=== PATIENT | male | born 1965 | race Caucasian/White ===

== ENCOUNTER 2018-03-06 11:55 | Inpatient (IN) | payer OTHER ==
[2018-03-06 12:05] VITALS: BMI 24.0
--- NOTE | 2018-03-06 13:28 | HP ---
CIWA Score - CIWA Score Nausea/Vomitin-No Nausea/No Vomiting Muscle Tremors: 3 Anxiety: 4-Mod. Anxious/Guarded Agitation: 4-Moderately Restless Paroxysmal Sweats: 1-Minimal Palms Moist Orientation: 0-Oriented Tacttile Disturbances: 2-Mild Itch/Numbness/Burn Auditory Disturbances: 0-None Visual Disturbances: 0-None Headache: 0-None Present CIWA-Ar Total Score: 14 Admission ROS BHS - HPI Chief Complaint: withdrawal sx alcohol Allergies/Adverse Reactions: Allergies Allergy/AdvReac Type Severity Reaction Status Date / Time No Known Allergies Allergy Verified 03/06/18 13:23 History of Present Illness: 52 years old male with long history of alcohol nicotine dependence has hypertension diabetes ii positive ppd and bipolar ii is admitted to detox Exam Limitations: No Limitations - Ebola screening Have you traveled outside of the country in the last 21 days: No Have you had contact with anyone from an Ebola affected area: No Have you been sick,other than usual withdrawal symptoms: No Do you have a fever: No - Review of Systems Constitutional: Loss of Appetite, Changes in sleep, Unintentional Wgt. Loss, Unexplained wgt Loss EENT: reports: Blurred Vision (eye glasses) Respiratory: reports: No Symptoms reported Cardiac: reports: No Symptoms Reported GI: reports: Nausea, Poor Appetite, Poor Fluid Intake, Indigestion, Abdominal cramping : reports: No Symptoms Reported Musculoskeletal: reports: Neck Pain (legs) Integumentary: reports: No Symptoms Reported Neuro: reports: Tremors Endocrine: reports: No Symptoms Reported Hematology: reports: No Symptoms Reported Psychiatric: reports: Judgement Intact, Orientated x3, Anxious, Depressed Other Systems: Reviewed and Negative Patient History - Patient Medical History Hx Anemia: No Hx Asthma: No Hx Chronic Obstructive Pulmonary Disease (COPD): No Hx Cancer: No Hx Cardiac Disorders: No Hx Congestive Heart Failure: No Hx Hypertension: Yes Hx Hypercholesterolemia: No Hx Pacemaker: No HX Cerebrovascular Accident: No Hx Seizures: No Hx Dementia: No Hx Diabetes: Yes Hx Gastrointestinal Disorders: No Hx Liver Disease: No Hx Genitourinary Disorders: No Hx Sexually Transmitted Disorders: No Hx Renal Disease (ESRD): No Hx Thyroid Disease: No Hx Human Immunodeficiency Virus (HIV): No Hx Hepatitis C: No Hx Depression: No Hx Suicide Attempt: No Hx Bipolar Disorder: Yes Hx Schizophrenia: No - Patient Surgical History Past Surgical History: No Hx Orthopedic Surgery: No - Smoking Cessation Smoking history: Current every day smoker Have you smoked in the past 12 months: Yes Aproximately how many cigarettes per day: 8 Cigars Per Day: 0 Hx Chewing Tobacco Use: No Initiated information on smoking cessation: Yes 'Breaking Loose' booklet given: 03/06/18 - Substance & Tx. History Hx Alcohol Use: Yes Hx Substance Use: Yes Substance Use Type: Alcohol, Cocaine, Marijuana Hx Substance Use Treatment: Yes (2008) - Substances Abused Cocaine Route: Inhalation Frequency: Daily Amount used: $50 Age of first use: 17 Date of Last Use: 03/03/18 Alcohol-vodka Route: Oral Frequency: Daily Amount used: 3 pts. Age of first use: 12 Date of Last Use: 03/04/18 Marijuana Route: Smoking Frequency: 3-6 times per week Amount used: $30 Age of first use: 17 Date of Last Use: 03/05/18 Family Disease History - Family Disease History Family Disease History: Diabetes: Mother, Other: Father () Other Family History: only child Admission Physical Exam [facility] - Vital Signs Vital Signs: Vital Signs - 24 hr 03/06/18 12:03 Temperature 97 F L Pulse Rate 53 L Respiratory 18 Rate Blood Pressure 162/90 - Physical General Appearance: Yes: Appropriately Dressed, Mild Distress, Tremorous, Irritable, Sweating, Anxious HEENTM: Yes: Hearing grossly Normal, Normocephalic, Normal Voice Respiratory: Yes: Chest Non-Tender, No Respiratory Distress, No Accessory Muscle Use Neck: Yes: Supple, Trachea in good position Breast: Yes: Breasts Symetrical, No Discharge Cardiology: Yes: Regular Rhythm, S1, S2, Bradycardia Abdominal: Yes: Normal Bowel Sounds, Non Tender, Flat Genitourinary: Yes: Within Normal Limits Back: Yes: Normal Inspection Musculoskeletal: Yes: full range of Motion, Gait Steady, Muscle Pain (legs) Extremities: Yes: Normal Inspection, Normal Range of Motion, Non-Tender, Tremors Neurological: Yes: Fully Oriented, Alert, Motor Strength 5/5, Normal Response, Depressed Affect Integumentary: Yes: Warm Lymphatic: Yes: Within Normal Limits - Diagnostic (1) Alcohol dependence with uncomplicated withdrawal Current Visit: Yes Status: Acute (2) Hypertension Current Visit: Yes Status: Chronic Qualifiers: Hypertension type: essential hypertension Qualified Code(s): I10 - Essential (primary) hypertension (3) Diabetes mellitus type II, uncontrolled Current Visit: Yes Status: Chronic Qualifiers: Diabetes mellitus vermin exterminator insulin use: with mcc use Diabetes mellitus complication status: without complication Qualified Code(s): E11.65 - Type 2 diabetes mellitus with hyperglycemia; Z79.4 - long term care pharmacist (current) use of insulin; Z79.4 - group home (current) use of insulin; Z79.4 - long term care pharmacist ( current) use of insulin; Z79.4 - long term care pharmacist (current) use of insulin (4) Positive PPD, treated Current Visit: Yes Status: Resolved (5) Nicotine dependence Current Visit: Yes Status: Acute Qualifiers: Nicotine product type: cigarettes Substance use status: in withdrawal Qualified Code(s): F17.213 - Nicotine dependence, cigarettes, with withdrawal (6) GERD (gastroesophageal reflux disease) Current Visit: Yes Status: Chronic Qualifiers: Esophagitis presence: without esophagitis Qualified Code(s): K21.9 - Gastro -esophageal reflux disease without esophagitis Cleared for Admission BHS - Detox or Rehab [facility] Level of Care: Medically Managed Detox Regimen/Protocol: Librium [facility] Breath Alcohol Content Breath Alcohol Content: 0 Urine Drug Screen - Control Is Test Valid: Yes - Results Drug Screen Negative: No Urine Drug Screen Results: THC-Marijuana, MONI-Cocaine
[2018-03-06] MEDS ORDERED: LOPERAMIDE HCL 2 MG CAPSULE PO PRN (13:33)
[2018-03-06] MEDS ORDERED: ACETAMINOPHEN 325 MG TABLET (FP) PO PRN (13:33)
[2018-03-06] MEDS ORDERED: chlordiazePOXIDE HCL 25 MG CAPSULE PO PRN (13:33)
[2018-03-06] MEDS ORDERED: NICOTINE POLACRILEX 2 MG GUM BC PRN (13:33)
[2018-03-06] MEDS ORDERED: MAGNESIUM HYDROX 2400MG/30ML ORAL SUSPENSION 30 ML CUP PO PRN (13:33)
[2018-03-06] MEDS ORDERED: guaiFENesin/D-METHORPHAN HB 10 ML UNIT-DOSE CUPS PO PRN (13:33)
[2018-03-06] MEDS ORDERED: IBUPROFEN 400 MG TABLET (FP) PO PRN (13:33)
[2018-03-06] MEDS ORDERED: MENTHOL/PHENOL 1 EACH UD MM PRN (13:33)
[2018-03-06] MEDS ORDERED: P-EPHED 60MG/TRIPROLIDI 2.5MG TABLET PO PRN (13:33)
[2018-03-06] MEDS ORDERED: MAG HYDROX/AL HYDROX/SIMETH 30 ML UNIT-DOSE CUP PO PRN (13:33)
[2018-03-06] MEDS ORDERED: MAGNESIUM CITRATE 300 ML BOTTLE PO PRN (13:33)
[2018-03-06] MEDS: ENALAPRIL MALEATE 10 MG TABLET (FP) PO SCH (15:26)
[2018-03-06] MEDS: NICOTINE 14 MG/24 HOURS TOPICAL PATCH TD SCH (15:27)
[2018-03-06] MEDS: RANITIDINE HCL 150 MG TABLET (FP) PO SCH ×2 (15:27→22:23)
[2018-03-06 16:39] LABS: URINE APPEARANCE CLEAR; URINE BILIRUBIN NEGATIVE (<2.0 mg/dL); URINE COLOR LTYELLOW; URINE GLUCOSE (UA) 3+ (NEGATIVE); URINE KETONE TRACE (NEGATIVE); URINE LEUK ESTERASE NEGATIVE (NEGATIVE); URINE NITRITE NEGATIVE (NEGATIVE); URINE PROTEIN NEGATIVE (NEGATIVE); URINE UROBILINOGEN NEGATIVE mg/dL (0.2-1.0)
[2018-03-06] MEDS ORDERED: INSULIN (NOVOLOG) ASPART 100 UNITS/ML 10ML VIAL ONE (16:48)
[2018-03-06] MEDS: INSULIN SLIDING SCALE (NOVOLOG) 1 VIAL SQ SCH ×2 (17:01→21:25)
[2018-03-06] MEDS ORDERED: MELATONIN 5 MG TABLETS PO PRN (22:00)
[2018-03-06] MEDS: THIAMINE HCL 100 MG TABLET (FP) PO SCH (22:23)
[2018-03-06] MEDS: chlordiazePOXIDE HCL 25 MG CAPSULE PO SCH (22:23)
[2018-03-07] MEDS: chlordiazePOXIDE HCL 25 MG CAPSULE PO SCH ×4 (05:18→22:50)
[2018-03-07] MEDS: INSULIN SLIDING SCALE (NOVOLOG) 1 VIAL SQ SCH ×4 (06:44→22:50)
[2018-03-07] MEDS ORDERED: INSULIN (NOVOLOG) ASPART 100 UNITS/ML 10ML VIAL ONE ×4 (06:44→21:15)
[2018-03-07 09:50] LABS: HEMOGLOBIN 14.8 GM/dL (11.7-16.9); MCH 31.4 pg (25.7-33.7); MCHC 34.4 g/dl (32.0-35.9); MEAN CELL VOLUME 91.1 fl (80-96); MEAN PLT VOLUME 10.5 fl (7.5-11.1); PLATELET COUNT 174 K/MM3 (134-434); RBC 4.72 M/mm3 (4.00-5.60); RDW 13.3 % (11.9-15.9); WHITE BLOOD COUNT 6.5 K/mm3 (4.0-10.0)
--- NOTE | 2018-03-07 09:55 | EKG ---
Test Reason : Blood Pressure : / mmHG Vent. Rate : 058 BPM Atrial Rate : 058 BPM P-R Int : 152 ms QRS Dur : 094 ms QT Int : 418 ms P-R-T Axes : 067 063 053 degrees QTc Int : 410 ms SINUS BRADYCARDIA OTHERWISE NORMAL ECG NO PREVIOUS ECGS AVAILABLE Confirmed by MD Cheko, Jarrett ([id number]) on 03/07/2018 9:54:58 AM Referred By: Confirmed By:Jarrett Still MD
[2018-03-07 10:05] LABS: CHLORIDE 102 mmol/L (98-107); POTASSIUM 4.1 mmol/L (3.5-5.1); SODIUM 138 mmol/L (136-145)
[2018-03-07] MEDS: NICOTINE 14 MG/24 HOURS TOPICAL PATCH TD SCH (10:16)
[2018-03-07] MEDS: ENALAPRIL MALEATE 10 MG TABLET (FP) PO SCH (10:16)
[2018-03-07] MEDS: PRENATAL VITAMINS W/ FOLIC ACID TABLET (FP) PO SCH (10:16)
[2018-03-07] MEDS: RANITIDINE HCL 150 MG TABLET (FP) PO SCH ×2 (10:16→22:50)
[2018-03-07 11:03] LABS: ALBUMIN 3.7 g/dl (3.4-5.0); ALK PHOS 69 U/L (45-117); ANION GAP 7 (8-16); BILIRUBIN,TOTAL 0.5 mg/dL (0.2-1.0); BLOOD UREA NITROGEN 9 mg/dL (7-18); CALCIUM 8.4 mg/dL (8.5-10.1); CO2 29 mmol/L (21-32); CREATININE 0.9 mg/dL (0.7-1.3); SGOT/AST 9 U/L (15-37); SGPT/ALT 15 U/L (12-78); TOT PROT 6.7 g/dl (6.4-8.2)
[2018-03-07 11:06] LABS: GLUCOSE,RANDOM 361 mg/dL (74-106)
--- NOTE | 2018-03-07 12:20 | PN ---
[facility] CIWA - CIWA Score Nausea/Vomitin-No Nausea/No Vomiting Muscle Tremors: None Anxiety: 4-Mod. Anxious/Guarded Agitation: 3 Paroxysmal Sweats: 3 Orientation: 0-Oriented Tacttile Disturbances: 2-Mild Itch/Numbness/Burn Auditory Disturbances: 3-Moderate Harsh/Frighten Visual Disturbances: 1-Very Mild Sensitivity Headache: 0-None Present CIWA-Ar Total Score: 16 S Progress Note (SOAP) Subjective: Fatigue, Sweating, Anxious. Objective: PATIENT A & O X 3. NO ACUTE DISTRESS. 03/07/18 12:19 Vital Signs Temperature 98.4 F 03/07/18 10:07 Pulse Rate 61 03/07/18 10:07 Respiratory Rate 20 03/07/18 10:07 Blood Pressure 116/74 03/07/18 10:07 O2 Sat by Pulse Oximetry (%) Laboratory Tests 03/06/18 03/06/18 03/06/18 13:40 14:00 16:27 WBC RBC Hgb Hct MCV MCH MCHC RDW Plt Count MPV Sodium Potassium Chloride Carbon Dioxide Anion Gap BUN Creatinine Creat Clearance w eGFR POC Glucometer 463 459 Random Glucose Calcium Total Bilirubin AST ALT Alkaline Phosphatase Total Protein Albumin Urine Color Ltyellow Urine Appearance Clear Urine pH 6.0 Ur Specific [place] 1.031 Urine Protein Negative Urine Glucose (UA) 3+ H Urine Ketones Trace H Urine Blood Negative Urine Nitrite Negative Urine Bilirubin Negative Urine Urobilinogen Negative Ur Leukocyte Esterase Negative 03/06/18 03/07/18 03/07/18 20:25 05:21 06:00 WBC 6.5 RBC 4.72 Hgb 14.8 Hct 43.0 MCV 91.1 MCH 31.4 MCHC 34.4 RDW 13.3 Plt Count 174 MPV 10.5 Sodium Potassium Chloride Carbon Dioxide Anion Gap BUN Creatinine Creat Clearance w eGFR POC Glucometer 128 292 Random Glucose Calcium Total Bilirubin AST ALT Alkaline Phosphatase Total Protein Albumin Urine Color Urine Appearance Urine pH Ur Specific [place] Urine Protein Urine Glucose (UA) Urine Ketones Urine Blood Urine Nitrite Urine Bilirubin Urine Urobilinogen Ur Leukocyte Esterase 03/07/18 06:00 WBC RBC Hgb Hct MCV MCH MCHC RDW Plt Count MPV Sodium 138 Potassium 4.1 Chloride 102 Carbon Dioxide 29 Anion Gap 7 L BUN 9 Creatinine 0.9 Creat Clearance w eGFR > 60 POC Glucometer Random Glucose 361 H* Calcium 8.4 L Total Bilirubin 0.5 AST 9 L ALT 15 Alkaline Phosphatase 69 Total Protein 6.7 Albumin 3.7 Urine Color Urine Appearance Urine pH Ur Specific [place] Urine Protein Urine Glucose (UA) Urine Ketones Urine Blood Urine Nitrite Urine Bilirubin Urine Urobilinogen Ur Leukocyte Esterase LABS NOTED. Assessment: 03/07/18 12:19 WITHDRAWAL SYMPTOMS. Plan: CONTINUE DETOX. INCREASE DAILY PO FLUID INTAKE.
--- NOTE | 2018-03-07 13:02 | CONSULT ---
[facility] Psychiatric Consult - Data Date of interview: 03/07/18 Admission source: [facility] Identifying data: First admission to [facility] for this 52 y/o male seeking detox treatment on for cacaine,cannabis and alcohol dependence.Patient is single without children,domiciled (lives with his mother), unemployed and supported on Public Assistance. Substance Abuse History: Confirmed by patient in this interview.Details in current [facility] report : Smoking history: Current every day smoker. Have you smoked in the past 12 months: Yes. Aproximately how many cigarettes per day: 8. Cigars Per Day: 0. Hx Chewing Tobacco Use: No. Initiated information on smoking cessation: Yes. 'Breaking Loose' booklet given: 03/06/18. - Substance & Tx. History. Hx Alcohol Use: Yes. Hx Substance Use: Yes. Substance Use Type : Alcohol, Cocaine, Marijuana. Hx Substance Use Treatment: Yes (2008). - Substances Abused. Cocaine. Route: Inhalation. Frequency: Daily. Amount used: $50. Age of first use: 17. Date of Last Use: 03/03/18. Alcohol- vodka. Route: Oral. Frequency: Daily. Amount used: 3 pts. Age of first use: 12. Date of Last Use: 03/04/18. Marijuana. Route: Smoking. Frequency: 3- 6 times per week. Amount used: $30. Age of first use: 17. Date of Last Use: 03/05/18 Medical History: Diabetes mellitus,history of positive PPD,arthritis of both knees,hypertension,chronic lumbar pain,GERD and a history of herniated discs (L4 -L5). Psychiatric History: Diagnosed with Bipolar Disorder.Patient indicates that he used to be treated with lithium,mirtazapine and seroquel.Last taken four years ago.Admits to a past psychiatric hospitalization at [facility] ( 2015 or 2016)." I am not too sure of the exact year ". Mr Manuel has been lost to OPD follow-up for some time.Denies history of suicide attempts. Physical/Sexual Abuse/Trauma History: Patient denies. Additional Comment: Urine Drug Screen Results: THC-Marijuana, MONI-Cocaine.Noted. Mental Status Exam - Mental Status Exam Alert and Oriented to: Time, Place, Person Cognitive Function: Good Patient Appearance: Well Groomed Mood: Hopeful, Euthymic Affect: Appropriate, Normal Range Patient Behavior: Fatigued, Cooperative Speech Pattern: Clear Voice Loudness: Normal Thought Process: Intact, Goal Oriented Thought Disorder: Not Present Hallucinations: Denies Suicidal Ideation: Denies Homicidal Ideation: Denies Insight/Judgement: Poor Sleep: Poorly, Difficulty falling asleep (wants seroquel) Appetite: Good Muscle strength/Tone: Normal Gait/Station: Normal Psychiatric Findings - Problem List ([place] 1, 2,3) (1) Alcohol dependence with uncomplicated withdrawal Current Visit: Yes Status: Acute (2) Nicotine dependence Current Visit: Yes Status: Acute Qualifiers: Nicotine product type: cigarettes Substance use status: in withdrawal Qualified Code(s): F17.213 - Nicotine dependence, cigarettes, with withdrawal (3) Cocaine dependence Current Visit: Yes Status: Acute (4) Cannabis dependence Current Visit: Yes Status: Acute (5) History of bipolar disorder Current Visit: Yes Status: Chronic (6) Insomnia Current Visit: Yes Status: Acute - Initial Treatment Plan Initial Treatment Plan: Psychoeducation.Sleep hygiene.Detoxification in progress.Seroquel 100 mg po hs.Side effects/benefits discussed with the patient.Made aware of risk of metabolic syndrome,oversedation,abnormal involuntary movements and cardiovascular adverse events.Mr Manuel agrees with this careplan.Observation.
[2018-03-07] MEDS: THIAMINE HCL 100 MG TABLET (FP) PO SCH (22:50)
[2018-03-07] MEDS: QUEtiapine FUMARATE 100 MG TABLET (FP) PO SCH (22:50)
[2018-03-08] MEDS: chlordiazePOXIDE HCL 25 MG CAPSULE PO SCH ×3 (06:58→17:13)
[2018-03-08] MEDS ORDERED: INSULIN (NOVOLOG) ASPART 100 UNITS/ML 10ML VIAL ONE ×3 (08:16→21:25)
[2018-03-08] MEDS: INSULIN SLIDING SCALE (NOVOLOG) 1 VIAL SQ SCH ×5 (08:16→21:20)
[2018-03-08] MEDS: RANITIDINE HCL 150 MG TABLET (FP) PO SCH ×2 (10:30→22:11)
[2018-03-08] MEDS: PRENATAL VITAMINS W/ FOLIC ACID TABLET (FP) PO SCH (10:30)
[2018-03-08] MEDS: ENALAPRIL MALEATE 10 MG TABLET (FP) PO SCH (10:30)
[2018-03-08] MEDS: NICOTINE 14 MG/24 HOURS TOPICAL PATCH TD SCH (10:31)
--- NOTE | 2018-03-08 11:49 | PN ---
[facility] CIWA - CIWA Score Nausea/Vomitin-No Nausea/No Vomiting Muscle Tremors: None Anxiety: 4-Mod. Anxious/Guarded Agitation: 2 Paroxysmal Sweats: 3 Orientation: 0-Oriented Tacttile Disturbances: 2-Mild Itch/Numbness/Burn Auditory Disturbances: 2-Mild Harshness/Frighten Visual Disturbances: 2-Mild Sensitivity Headache: 0-None Present CIWA-Ar Total Score: 15 BHS Progress Note (SOAP) Subjective: Fatigue, Sweating, Anxious. Objective: PATIENT A & O X 3. NO ACUTE DISTRESS. 03/08/18 11:48 Vital Signs Temperature 95.4 F L 03/08/18 09:12 Pulse Rate 59 L 03/08/18 09:12 Respiratory Rate 16 03/08/18 09:12 Blood Pressure 124/80 03/08/18 09:12 O2 Sat by Pulse Oximetry (%) Laboratory Tests 03/06/18 03/06/18 03/06/18 06:00 13:40 14:00 WBC RBC Hgb Hct MCV MCH MCHC RDW Plt Count MPV Sodium Potassium Chloride Carbon Dioxide Anion Gap BUN Creatinine Creat Clearance w eGFR POC Glucometer 463 Random Glucose Calcium Total Bilirubin AST ALT Alkaline Phosphatase Total Protein Albumin Urine Color Ltyellow Urine Appearance Clear Urine pH 6.0 Ur Specific [place] 1.031 Urine Protein Negative Urine Glucose (UA) 3+ H Urine Ketones Trace H Urine Blood Negative Urine Nitrite Negative Urine Bilirubin Negative Urine Urobilinogen Negative Ur Leukocyte Esterase Negative RPR Titer HIV 1&2 Antibody Screen Negative HIV P24 Antigen Negative 03/06/18 03/06/18 03/07/18 16:27 20:25 05:21 WBC RBC Hgb Hct MCV MCH MCHC RDW Plt Count MPV Sodium Potassium Chloride Carbon Dioxide Anion Gap BUN Creatinine Creat Clearance w eGFR POC Glucometer 459 128 292 Random Glucose Calcium Total Bilirubin AST ALT Alkaline Phosphatase Total Protein Albumin Urine Color Urine Appearance Urine pH Ur Specific [place] Urine Protein Urine Glucose (UA) Urine Ketones Urine Blood Urine Nitrite Urine Bilirubin Urine Urobilinogen Ur Leukocyte Esterase RPR Titer HIV 1&2 Antibody Screen HIV P24 Antigen 03/07/18 03/07/18 03/07/18 06:00 06:00 06:00 WBC 6.5 RBC 4.72 Hgb 14.8 Hct 43.0 MCV 91.1 MCH 31.4 MCHC 34.4 RDW 13.3 Plt Count 174 MPV 10.5 Sodium 138 Potassium 4.1 Chloride 102 Carbon Dioxide 29 Anion Gap 7 L BUN 9 Creatinine 0.9 Creat Clearance w eGFR > 60 POC Glucometer Random Glucose 361 H* Calcium 8.4 L Total Bilirubin 0.5 AST 9 L ALT 15 Alkaline Phosphatase 69 Total Protein 6.7 Albumin 3.7 Urine Color Urine Appearance Urine pH Ur Specific [place] Urine Protein Urine Glucose (UA) Urine Ketones Urine Blood Urine Nitrite Urine Bilirubin Urine Urobilinogen Ur Leukocyte Esterase RPR Titer Nonreactive HIV 1&2 Antibody Screen HIV P24 Antigen 03/07/18 03/07/18 03/07/18 11:19 16:15 21:06 WBC RBC Hgb Hct MCV MCH MCHC RDW Plt Count MPV Sodium Potassium Chloride Carbon Dioxide Anion Gap BUN Creatinine Creat Clearance w eGFR POC Glucometer 315 318 313 Random Glucose Calcium Total Bilirubin AST ALT Alkaline Phosphatase Total Protein Albumin Urine Color Urine Appearance Urine pH Ur Specific [place] Urine Protein Urine Glucose (UA) Urine Ketones Urine Blood Urine Nitrite Urine Bilirubin Urine Urobilinogen Ur Leukocyte Esterase RPR Titer HIV 1&2 Antibody Screen HIV P24 Antigen 03/08/18 08:12 WBC RBC Hgb Hct MCV MCH MCHC RDW Plt Count MPV Sodium Potassium Chloride Carbon Dioxide Anion Gap BUN Creatinine Creat Clearance w eGFR POC Glucometer 262 Random Glucose Calcium Total Bilirubin AST ALT Alkaline Phosphatase Total Protein Albumin Urine Color Urine Appearance Urine pH Ur Specific [place] Urine Protein Urine Glucose (UA) Urine Ketones Urine Blood Urine Nitrite Urine Bilirubin Urine Urobilinogen Ur Leukocyte Esterase RPR Titer HIV 1&2 Antibody Screen HIV P24 Antigen LABS NOTED. Assessment: 03/08/18 11:48 WITHDRAWAL SYMPTOMS. Plan: CONTINUE DETOX. INCREASE DAILY PO FLUID INTAKE. ENCOURAGE AMBULATION.
[2018-03-08] MEDS: QUEtiapine FUMARATE 100 MG TABLET (FP) PO SCH (22:11)
[2018-03-08] MEDS: chlordiazePOXIDE 5 MG CAPSULE PO SCH (22:11)
[2018-03-08] MEDS: THIAMINE HCL 100 MG TABLET (FP) PO SCH (22:11)
[2018-03-09] MEDS: chlordiazePOXIDE 5 MG CAPSULE PO SCH ×3 (06:51→16:50)
[2018-03-09] MEDS ORDERED: INSULIN (NOVOLOG) ASPART 100 UNITS/ML 10ML VIAL ONE ×5 (07:47→22:33)
[2018-03-09] MEDS: INSULIN SLIDING SCALE (NOVOLOG) 1 VIAL SQ SCH ×4 (07:50→22:57)
[2018-03-09] MEDS: ENALAPRIL MALEATE 10 MG TABLET (FP) PO SCH (10:15)
[2018-03-09] MEDS: RANITIDINE HCL 150 MG TABLET (FP) PO SCH ×2 (10:15→22:55)
[2018-03-09] MEDS: PRENATAL VITAMINS W/ FOLIC ACID TABLET (FP) PO SCH (10:15)
[2018-03-09] MEDS: NICOTINE 14 MG/24 HOURS TOPICAL PATCH TD SCH (10:16)
--- NOTE | 2018-03-09 15:17 | PN ---
BHS Progress Note (SOAP) Subjective: Fatigue, Sweating. Objective: PATIENT A & O X 3, OBSERVED AMBULATING ON UNIT. NO ACUTE DISTRESS. 03/09/18 15:15 Vital Signs Temperature 97.2 F L 03/09/18 13:32 Pulse Rate 66 03/09/18 13:32 Respiratory Rate 18 03/09/18 13:32 Blood Pressure 137/81 03/09/18 13:32 O2 Sat by Pulse Oximetry (%) Laboratory Tests 03/06/18 03/06/18 03/06/18 06:00 13:40 14:00 WBC RBC Hgb Hct MCV MCH MCHC RDW Plt Count MPV Sodium Potassium Chloride Carbon Dioxide Anion Gap BUN Creatinine Creat Clearance w eGFR POC Glucometer 463 Random Glucose Calcium Total Bilirubin AST ALT Alkaline Phosphatase Total Protein Albumin Urine Color Ltyellow Urine Appearance Clear Urine pH 6.0 Ur Specific [place] 1.031 Urine Protein Negative Urine Glucose (UA) 3+ H Urine Ketones Trace H Urine Blood Negative Urine Nitrite Negative Urine Bilirubin Negative Urine Urobilinogen Negative Ur Leukocyte Esterase Negative RPR Titer HIV 1&2 Antibody Screen Negative HIV P24 Antigen Negative 03/06/18 03/06/18 03/07/18 16:27 20:25 05:21 WBC RBC Hgb Hct MCV MCH MCHC RDW Plt Count MPV Sodium Potassium Chloride Carbon Dioxide Anion Gap BUN Creatinine Creat Clearance w eGFR POC Glucometer 459 128 292 Random Glucose Calcium Total Bilirubin AST ALT Alkaline Phosphatase Total Protein Albumin Urine Color Urine Appearance Urine pH Ur Specific [place] Urine Protein Urine Glucose (UA) Urine Ketones Urine Blood Urine Nitrite Urine Bilirubin Urine Urobilinogen Ur Leukocyte Esterase RPR Titer HIV 1&2 Antibody Screen HIV P24 Antigen 03/07/18 03/07/18 03/07/18 06:00 06:00 06:00 WBC 6.5 RBC 4.72 Hgb 14.8 Hct 43.0 MCV 91.1 MCH 31.4 MCHC 34.4 RDW 13.3 Plt Count 174 MPV 10.5 Sodium 138 Potassium 4.1 Chloride 102 Carbon Dioxide 29 Anion Gap 7 L BUN 9 Creatinine 0.9 Creat Clearance w eGFR > 60 POC Glucometer Random Glucose 361 H* Calcium 8.4 L Total Bilirubin 0.5 AST 9 L ALT 15 Alkaline Phosphatase 69 Total Protein 6.7 Albumin 3.7 Urine Color Urine Appearance Urine pH Ur Specific [place] Urine Protein Urine Glucose (UA) Urine Ketones Urine Blood Urine Nitrite Urine Bilirubin Urine Urobilinogen Ur Leukocyte Esterase RPR Titer Nonreactive HIV 1&2 Antibody Screen HIV P24 Antigen 03/07/18 03/07/18 03/07/18 11:19 16:15 21:06 WBC RBC Hgb Hct MCV MCH MCHC RDW Plt Count MPV Sodium Potassium Chloride Carbon Dioxide Anion Gap BUN Creatinine Creat Clearance w eGFR POC Glucometer 315 318 313 Random Glucose Calcium Total Bilirubin AST ALT Alkaline Phosphatase Total Protein Albumin Urine Color Urine Appearance Urine pH Ur Specific [place] Urine Protein Urine Glucose (UA) Urine Ketones Urine Blood Urine Nitrite Urine Bilirubin Urine Urobilinogen Ur Leukocyte Esterase RPR Titer HIV 1&2 Antibody Screen HIV P24 Antigen 03/08/18 03/08/18 03/08/18 08:12 11:37 16:24 WBC RBC Hgb Hct MCV MCH MCHC RDW Plt Count MPV Sodium Potassium Chloride Carbon Dioxide Anion Gap BUN Creatinine Creat Clearance w eGFR POC Glucometer 262 434 262 Random Glucose Calcium Total Bilirubin AST ALT Alkaline Phosphatase Total Protein Albumin Urine Color Urine Appearance Urine pH Ur Specific [place] Urine Protein Urine Glucose (UA) Urine Ketones Urine Blood Urine Nitrite Urine Bilirubin Urine Urobilinogen Ur Leukocyte Esterase RPR Titer HIV 1&2 Antibody Screen HIV P24 Antigen 03/08/18 03/09/18 03/09/18 21:17 06:14 11:55 WBC RBC Hgb Hct MCV MCH MCHC RDW Plt Count MPV Sodium Potassium Chloride Carbon Dioxide Anion Gap BUN Creatinine Creat Clearance w eGFR POC Glucometer 377 284 289 Random Glucose Calcium Total Bilirubin AST ALT Alkaline Phosphatase Total Protein Albumin Urine Color Urine Appearance Urine pH Ur Specific [place] Urine Protein Urine Glucose (UA) Urine Ketones Urine Blood Urine Nitrite Urine Bilirubin Urine Urobilinogen Ur Leukocyte Esterase RPR Titer HIV 1&2 Antibody Screen HIV P24 Antigen LABS NOTED. Assessment: 03/09/18 15:16 WITHDRAWAL SYMPTOMS. Plan: CONTINUE DETOX.
[2018-03-09] MEDS ORDERED: INSULIN (LEVEMIR) 100 UNITS/ML UNITS SQ SCH (22:00)
[2018-03-09] MEDS: chlordiazePOXIDE HCL 10 MG CAPSULE PO SCH (22:54)
[2018-03-09] MEDS: QUEtiapine FUMARATE 100 MG TABLET (FP) PO SCH (22:55)
[2018-03-09] MEDS: THIAMINE HCL 100 MG TABLET (FP) PO SCH (22:55)
[2018-03-10] MEDS: chlordiazePOXIDE HCL 10 MG CAPSULE PO SCH ×2 (06:52→10:19)
[2018-03-10] MEDS ORDERED: INSULIN (NOVOLOG) ASPART 100 UNITS/ML 10ML VIAL ONE ×2 (08:18→11:39)
[2018-03-10] MEDS: INSULIN SLIDING SCALE (NOVOLOG) 1 VIAL SQ SCH ×2 (08:21→11:36)
[2018-03-10] MEDS: RANITIDINE HCL 150 MG TABLET (FP) PO SCH (10:19)
[2018-03-10] MEDS: NICOTINE 14 MG/24 HOURS TOPICAL PATCH TD SCH (10:19)
[2018-03-10] MEDS: ENALAPRIL MALEATE 10 MG TABLET (FP) PO SCH (10:19)
[2018-03-10] MEDS: PRENATAL VITAMINS W/ FOLIC ACID TABLET (FP) PO SCH (10:19)
[2018-03-10 11:00] VITALS: BP 99/66; PULSE 76; TEMP 96.5
--- NOTE | 2018-03-10 13:42 | PN ---
S Progress Note (SOAP) Subjective: Patient denies current Detox symptoms and reports that he feels well overall. Objective: PATIENT A & O X 3, OBSERVED AMBULATING ON UNIT. NO ACUTE DISTRESS. 03/10/18 13:41 Vital Signs Temperature 96.5 F L 03/10/18 10:00 Pulse Rate 76 03/10/18 10:00 Respiratory Rate 18 03/10/18 10:00 Blood Pressure 99/66 03/10/18 10:00 O2 Sat by Pulse Oximetry (%) Laboratory Tests 03/06/18 03/06/18 03/06/18 06:00 13:40 14:00 WBC RBC Hgb Hct MCV MCH MCHC RDW Plt Count MPV Sodium Potassium Chloride Carbon Dioxide Anion Gap BUN Creatinine Creat Clearance w eGFR POC Glucometer 463 Random Glucose Calcium Total Bilirubin AST ALT Alkaline Phosphatase Total Protein Albumin Urine Color Ltyellow Urine Appearance Clear Urine pH 6.0 Ur Specific Tyler 1.031 Urine Protein Negative Urine Glucose (UA) 3+ H Urine Ketones Trace H Urine Blood Negative Urine Nitrite Negative Urine Bilirubin Negative Urine Urobilinogen Negative Ur Leukocyte Esterase Negative RPR Titer HIV 1&2 Antibody Screen Negative HIV P24 Antigen Negative 03/06/18 03/06/18 03/07/18 16:27 20:25 05:21 WBC RBC Hgb Hct MCV MCH MCHC RDW Plt Count MPV Sodium Potassium Chloride Carbon Dioxide Anion Gap BUN Creatinine Creat Clearance w eGFR POC Glucometer 459 128 292 Random Glucose Calcium Total Bilirubin AST ALT Alkaline Phosphatase Total Protein Albumin Urine Color Urine Appearance Urine pH Ur Specific Tyler Urine Protein Urine Glucose (UA) Urine Ketones Urine Blood Urine Nitrite Urine Bilirubin Urine Urobilinogen Ur Leukocyte Esterase RPR Titer HIV 1&2 Antibody Screen HIV P24 Antigen 03/07/18 03/07/18 03/07/18 06:00 06:00 06:00 WBC 6.5 RBC 4.72 Hgb 14.8 Hct 43.0 MCV 91.1 MCH 31.4 MCHC 34.4 RDW 13.3 Plt Count 174 MPV 10.5 Sodium 138 Potassium 4.1 Chloride 102 Carbon Dioxide 29 Anion Gap 7 L BUN 9 Creatinine 0.9 Creat Clearance w eGFR > 60 POC Glucometer Random Glucose 361 H* Calcium 8.4 L Total Bilirubin 0.5 AST 9 L ALT 15 Alkaline Phosphatase 69 Total Protein 6.7 Albumin 3.7 Urine Color Urine Appearance Urine pH Ur Specific Tyler Urine Protein Urine Glucose (UA) Urine Ketones Urine Blood Urine Nitrite Urine Bilirubin Urine Urobilinogen Ur Leukocyte Esterase RPR Titer Nonreactive HIV 1&2 Antibody Screen HIV P24 Antigen 03/07/18 03/07/18 03/07/18 11:19 16:15 21:06 WBC RBC Hgb Hct MCV MCH MCHC RDW Plt Count MPV Sodium Potassium Chloride Carbon Dioxide Anion Gap BUN Creatinine Creat Clearance w eGFR POC Glucometer 315 318 313 Random Glucose Calcium Total Bilirubin AST ALT Alkaline Phosphatase Total Protein Albumin Urine Color Urine Appearance Urine pH Ur Specific Tyler Urine Protein Urine Glucose (UA) Urine Ketones Urine Blood Urine Nitrite Urine Bilirubin Urine Urobilinogen Ur Leukocyte Esterase RPR Titer HIV 1&2 Antibody Screen HIV P24 Antigen 03/08/18 03/08/18 03/08/18 08:12 11:37 16:24 WBC RBC Hgb Hct MCV MCH MCHC RDW Plt Count MPV Sodium Potassium Chloride Carbon Dioxide Anion Gap BUN Creatinine Creat Clearance w eGFR POC Glucometer 262 434 262 Random Glucose Calcium Total Bilirubin AST ALT Alkaline Phosphatase Total Protein Albumin Urine Color Urine Appearance Urine pH Ur Specific Tyler Urine Protein Urine Glucose (UA) Urine Ketones Urine Blood Urine Nitrite Urine Bilirubin Urine Urobilinogen Ur Leukocyte Esterase RPR Titer HIV 1&2 Antibody Screen HIV P24 Antigen 03/08/18 03/09/18 03/09/18 21:17 06:14 11:55 WBC RBC Hgb Hct MCV MCH MCHC RDW Plt Count MPV Sodium Potassium Chloride Carbon Dioxide Anion Gap BUN Creatinine Creat Clearance w eGFR POC Glucometer 377 284 289 Random Glucose Calcium Total Bilirubin AST ALT Alkaline Phosphatase Total Protein Albumin Urine Color Urine Appearance Urine pH Ur Specific Tyler Urine Protein Urine Glucose (UA) Urine Ketones Urine Blood Urine Nitrite Urine Bilirubin Urine Urobilinogen Ur Leukocyte Esterase RPR Titer HIV 1&2 Antibody Screen HIV P24 Antigen 03/10/18 03/10/18 06:36 11:32 WBC RBC Hgb Hct MCV MCH MCHC RDW Plt Count MPV Sodium Potassium Chloride Carbon Dioxide Anion Gap BUN Creatinine Creat Clearance w eGFR POC Glucometer 276 283 Random Glucose Calcium Total Bilirubin AST ALT Alkaline Phosphatase Total Protein Albumin Urine Color Urine Appearance Urine pH Ur Specific Tyler Urine Protein Urine Glucose (UA) Urine Ketones Urine Blood Urine Nitrite Urine Bilirubin Urine Urobilinogen Ur Leukocyte Esterase RPR Titer HIV 1&2 Antibody Screen HIV P24 Antigen LABS NOTED. Assessment: 03/10/18 13:41 COMPLETION OF DETOX REGIMEN. Plan: PATIENT SCHEDULED FOR DISCHARGE FROM DETOX UNIT TODAY.
--- NOTE | 2018-03-10 13:46 | DS ---
[facility] Detox Discharge Summary Admission Date: 03/06/18 Discharge Date: 03/10/18 - History Present History: Alcohol Dependence, Cannabis Dependence, Cocaine Dependence Additional Comments: PATIENT GOING [facility] ([facility]) FOR AFTERCARE. PATIENT WAS DISCHARGED FROM DETOX UNIT TO BE TAKEN OVER TO REHAB UNIT IN STABLE MEDICAL CONDITION. Pertinent Past History: HTN, Type II DM, Nicotine Dependence, Bipolar Disorder, History of Positive PPD (Treated), Insomnia, GERD. - Physical Exam Results Vital Signs: Vital Signs Temperature 96.5 F L 03/10/18 10:00 Pulse Rate 76 03/10/18 10:00 Respiratory Rate 18 03/10/18 10:00 Blood Pressure 99/66 03/10/18 10:00 O2 Sat by Pulse Oximetry (%) Pertinent Admission Physical Exam Findings: WITHDRAWAL SYMPTOMS. Laboratory Tests 03/06/18 03/06/18 03/06/18 06:00 13:40 14:00 WBC RBC Hgb Hct MCV MCH MCHC RDW Plt Count MPV Sodium Potassium Chloride Carbon Dioxide Anion Gap BUN Creatinine Creat Clearance w eGFR POC Glucometer 463 Random Glucose Calcium Total Bilirubin AST ALT Alkaline Phosphatase Total Protein Albumin Urine Color Ltyellow Urine Appearance Clear Urine pH 6.0 Ur Specific [place] 1.031 Urine Protein Negative Urine Glucose (UA) 3+ H Urine Ketones Trace H Urine Blood Negative Urine Nitrite Negative Urine Bilirubin Negative Urine Urobilinogen Negative Ur Leukocyte Esterase Negative RPR Titer HIV 1&2 Antibody Screen Negative HIV P24 Antigen Negative 03/06/18 03/06/18 03/07/18 16:27 20:25 05:21 WBC RBC Hgb Hct MCV MCH MCHC RDW Plt Count MPV Sodium Potassium Chloride Carbon Dioxide Anion Gap BUN Creatinine Creat Clearance w eGFR POC Glucometer 459 128 292 Random Glucose Calcium Total Bilirubin AST ALT Alkaline Phosphatase Total Protein Albumin Urine Color Urine Appearance Urine pH Ur Specific [place] Urine Protein Urine Glucose (UA) Urine Ketones Urine Blood Urine Nitrite Urine Bilirubin Urine Urobilinogen Ur Leukocyte Esterase RPR Titer HIV 1&2 Antibody Screen HIV P24 Antigen 03/07/18 03/07/18 03/07/18 06:00 06:00 06:00 WBC 6.5 RBC 4.72 Hgb 14.8 Hct 43.0 MCV 91.1 MCH 31.4 MCHC 34.4 RDW 13.3 Plt Count 174 MPV 10.5 Sodium 138 Potassium 4.1 Chloride 102 Carbon Dioxide 29 Anion Gap 7 L BUN 9 Creatinine 0.9 Creat Clearance w eGFR > 60 POC Glucometer Random Glucose 361 H* Calcium 8.4 L Total Bilirubin 0.5 AST 9 L ALT 15 Alkaline Phosphatase 69 Total Protein 6.7 Albumin 3.7 Urine Color Urine Appearance Urine pH Ur Specific [place] Urine Protein Urine Glucose (UA) Urine Ketones Urine Blood Urine Nitrite Urine Bilirubin Urine Urobilinogen Ur Leukocyte Esterase RPR Titer Nonreactive HIV 1&2 Antibody Screen HIV P24 Antigen 03/07/18 03/07/18 03/07/18 11:19 16:15 21:06 WBC RBC Hgb Hct MCV MCH MCHC RDW Plt Count MPV Sodium Potassium Chloride Carbon Dioxide Anion Gap BUN Creatinine Creat Clearance w eGFR POC Glucometer 315 318 313 Random Glucose Calcium Total Bilirubin AST ALT Alkaline Phosphatase Total Protein Albumin Urine Color Urine Appearance Urine pH Ur Specific [place] Urine Protein Urine Glucose (UA) Urine Ketones Urine Blood Urine Nitrite Urine Bilirubin Urine Urobilinogen Ur Leukocyte Esterase RPR Titer HIV 1&2 Antibody Screen HIV P24 Antigen 03/08/18 03/08/18 03/08/18 08:12 11:37 16:24 WBC RBC Hgb Hct MCV MCH MCHC RDW Plt Count MPV Sodium Potassium Chloride Carbon Dioxide Anion Gap BUN Creatinine Creat Clearance w eGFR POC Glucometer 262 434 262 Random Glucose Calcium Total Bilirubin AST ALT Alkaline Phosphatase Total Protein Albumin Urine Color Urine Appearance Urine pH Ur Specific [place] Urine Protein Urine Glucose (UA) Urine Ketones Urine Blood Urine Nitrite Urine Bilirubin Urine Urobilinogen Ur Leukocyte Esterase RPR Titer HIV 1&2 Antibody Screen HIV P24 Antigen 03/08/18 03/09/18 03/09/18 21:17 06:14 11:55 WBC RBC Hgb Hct MCV MCH MCHC RDW Plt Count MPV Sodium Potassium Chloride Carbon Dioxide Anion Gap BUN Creatinine Creat Clearance w eGFR POC Glucometer 377 284 289 Random Glucose Calcium Total Bilirubin AST ALT Alkaline Phosphatase Total Protein Albumin Urine Color Urine Appearance Urine pH Ur Specific [place] Urine Protein Urine Glucose (UA) Urine Ketones Urine Blood Urine Nitrite Urine Bilirubin Urine Urobilinogen Ur Leukocyte Esterase RPR Titer HIV 1&2 Antibody Screen HIV P24 Antigen 03/10/18 03/10/18 06:36 11:32 WBC RBC Hgb Hct MCV MCH MCHC RDW Plt Count MPV Sodium Potassium Chloride Carbon Dioxide Anion Gap BUN Creatinine Creat Clearance w eGFR POC Glucometer 276 283 Random Glucose Calcium Total Bilirubin AST ALT Alkaline Phosphatase Total Protein Albumin Urine Color Urine Appearance Urine pH Ur Specific [place] Urine Protein Urine Glucose (UA) Urine Ketones Urine Blood Urine Nitrite Urine Bilirubin Urine Urobilinogen Ur Leukocyte Esterase RPR Titer HIV 1&2 Antibody Screen HIV P24 Antigen LABS NOTED. - Treatment Hospital Course: Detox Protocol Followed, Detoxed Safely, Responded well, Discharged Condition Good, Rehab Referral Accepted Patient has Accepted a Rehab Referral to: [facility] ([facility]) . - Medication Discharge Medications: Ambulatory Orders Enalapril Maleate [Vasotec -] 10 mg PO DAILY 03/06/18 Insulin (Novolog) [Novolog Flexpen] 0 units SQ TID PRN 03/06/18 Quetiapine Fumarate [Seroquel] 100 mg PO HS #30 tablet 03/08/18 Insulin Glargine,Hum.rec.anlog [Lantus] 60 units SQ HS 03/09/18 - Diagnosis (1) Alcohol dependence with uncomplicated withdrawal Status: Acute (2) Nicotine dependence Status: Acute Qualifiers: Nicotine product type: cigarettes Substance use status: in withdrawal Qualified Code(s): F17.213 - Nicotine dependence, cigarettes, with withdrawal (3) Diabetes mellitus type II, uncontrolled Status: Chronic Qualifiers: Diabetes mellitus correction insulin use: with correction use Diabetes mellitus complication status: without complication Qualified Code(s): E11.65 - Type 2 diabetes mellitus with hyperglycemia; Z79.4 - termite renewal inspector (current) use of insulin; Z79.4 - termite renewal inspector (current) use of insulin; Z79.4 - termite renewal inspector ( current) use of insulin; Z79.4 - termite renewal inspector (current) use of insulin (4) GERD (gastroesophageal reflux disease) Status: Chronic Qualifiers: Esophagitis presence: without esophagitis Qualified Code(s): K21.9 - Gastro -esophageal reflux disease without esophagitis (5) Hypertension Status: Chronic Qualifiers: Hypertension type: essential hypertension Qualified Code(s): I10 - Essential (primary) hypertension (6) Positive PPD, treated Status: Resolved (7) Insomnia Status: Acute Qualifiers: Insomnia type: unspecified Qualified Code(s): G47.00 - Insomnia, unspecified (8) History of bipolar disorder Status: Chronic - AMA Did Patient Leave Against Medical Advice: No
== END 2018-03-10 13:06 | disposition other institution (70) | DRG 774 ==
LOC: YASAS 11:55 → Y3N 14:07
PROVIDERS: ADMIT Internal Medicine; ATTEND Internal Medicine
PROC: HZ2ZZZZ Detoxification Services for Substance Abuse Treatment (ICD-10-PCS; principal; 2018-03-06)
DX: F10.230 Alcohol dependence with withdrawal, uncomplicated (principal); F14.20 Cocaine dependence, uncomplicated; F12.20 Cannabis dependence, uncomplicated; F17.210 Nicotine dependence, cigarettes, uncomplicated; F31.9 Bipolar disorder, unspecified; G47.00 Insomnia, unspecified; I10 Essential (primary) hypertension; K21.9 Gastro-esophageal reflux disease without esophagitis; E11.9 Type 2 diabetes mellitus without complications; Z79.4 Long term (current) use of insulin; R76.11 Nonspecific reaction to tuberculin skin test without active tuberculosis
CPT/HCPCS: 36415; 71046-TC-FY; 80053; 81003; 82962; 85027; 86593; 87389; 93005; 93010

== ENCOUNTER 2018-03-10 13:15 | Inpatient (IN) | payer OTHER ==
[2018-03-10] MEDS ORDERED: LOPERAMIDE HCL 2 MG CAPSULE PO PRN (13:33)
[2018-03-10] MEDS ORDERED: guaiFENesin/D-METHORPHAN HB 10 ML UNIT-DOSE CUPS PO PRN (13:33)
[2018-03-10] MEDS ORDERED: MAGNESIUM CITRATE 300 ML BOTTLE PO PRN (13:33)
[2018-03-10] MEDS ORDERED: NICOTINE POLACRILEX 2 MG GUM BUC PRN (13:33)
[2018-03-10] MEDS ORDERED: MAG HYDROX/AL HYDROX/SIMETH 30 ML UNIT-DOSE CUP PO PRN (13:33)
[2018-03-10] MEDS ORDERED: MAGNESIUM HYDROX 2400MG/30ML ORAL SUSPENSION 30 ML CUP PO PRN (13:33)
[2018-03-10] MEDS ORDERED: ACETAMINOPHEN 325 MG TABLET (FP) PO PRN (13:33)
[2018-03-10] MEDS ORDERED: P-EPHED 60MG/TRIPROLIDI 2.5MG TABLET PO PRN (13:33)
[2018-03-10] MEDS ORDERED: MENTHOL/PHENOL 1 EACH UD MM PRN (13:33)
--- NOTE | 2018-03-10 13:39 | HP ---
[facility] Rehab Assess/Revision - Admission History Admitted to Rehab from: [facility] Date of Admission to Rehab: 03/10/2018 - Vital signs Vital Signs: NOTED; STABLE. - Findings Detox History & Physical reviewed: Yes Concur with findings: Yes Comments/Additional Findings: PATIENT'S MEDICAL / MEDICATION HISTORY REVIEWED PRIOR TO DISCHARGE FROM DETOX UNIT. PATIENT WAS DISCHARGED FROM DETOX UNIT TO BE TAKEN TO REHAB UNIT IN STABLE MEDICAL CONDITION. Inpatient Rehab Admission - Initial Determination Are CD services needed?: Yes Free of communicable disease: Yes Not in need of hospitalization: Yes - Rehab Admission Criteria Previous failed treatment: Yes Comorbidities: Yes Patient is meeting Inpatient Rehab admission criteria:: Yes
--- NOTE | 2018-03-10 13:52 | HP ---
Psychiatrist Admission - Data Date of interview: 03/10/18 Admission source: 3N Identifying data: This is the first [facility] admission for this 52 years old single male, unemployed on public assistance, domiciled living with his mother Medical History: Significant for diabetes mellitus, hypertension, arthritis both knees, chronic lumbar pain, GERD, herniated discs (L4-L5) and history of treatment for PPD+.Smokes nicotine 8 cigarettes daily Psychiatric History: Patient reports being diagnosed with Bipolar Disorder in 1995. Reports history of 2 previous psychiatric admissions both to [facility]/ [place]. Reports that his most recent admission was in 2017 for suicidal ideations. Claims that he was discharged on [place] and Remeron and referred for follow up. Claims that he did not go to aftercare and stopped taking medications. He saw Dr Edouard on 03/07/18 while in detox and was prescribed Seroquel 100 mg po HS. At present, reports feeling depressed and sleeping poorly. Denies experiencing psychotic or manic symptoms as well as S/H ideations Physical/Sexual Abuse/Trauma History: Denies history of emotional, physical or sexual abuse as well as DV relationship. No service Additional Comment: Reports history of multiple previous arrests including 2 felony convictions Allergies/Adverse Reactions: Allergies Allergy/AdvReac Type Severity Reaction Status Date / Time No Known Allergies Allergy Verified 03/06/18 13:23 Date of last physical exam: 03/06/18 Concur with the findings of this exam: Yes - Substance Abuse/Tx History Hx Alcohol Use: Yes Hx Substance Use: Yes Substance Use Type: Alcohol (Started drinking alcohol at age 12, consumes 3 pints of vodka daily. Last drank on 03/04/18), Cocaine (Started using cocaine at age 17, consumes $50 worth daily), Marijuana (Started smoking marijuana at age 17, consumes $30 worth 3-6 times weekly. Last smoked on 03/05/18) Hx Substance Use Treatment: Yes (One recent inpt detox @ [facility]) Mental Status Exam - Mental Status Exam Alert and Oriented to: Time, Place, Person Cognitive Function: Fair Patient Appearance: Disheveled Mood: Depressed Affect: Appropriate Speech Pattern: Clear Voice Loudness: Normal Thought Process: Intact, Goal Oriented Thought Disorder: Not Present Hallucinations: Denies Suicidal Ideation: Denies Homicidal Ideation: Denies Insight/Judgement: Fair Sleep: Poorly Appetite: Good Muscle strength/Tone: Normal Gait/Station: Normal Psychiatric Findings - Problem List ([place] 1, 2,3) (1) Alcohol dependence Current Visit: Yes Status: Acute (2) Cocaine dependence Current Visit: No Status: Acute (3) Cannabis dependence Current Visit: No Status: Acute (4) Nicotine dependence Current Visit: No Status: Chronic Qualifiers: Nicotine product type: cigarettes Substance use status: in withdrawal Qualified Code(s): F17.213 - Nicotine dependence, cigarettes, with withdrawal (5) History of bipolar disorder Current Visit: No Status: Chronic (6) Substance induced mood disorder Current Visit: Yes Status: Acute (7) Substance-induced sleep disorder Current Visit: Yes Status: Acute (8) Diabetes mellitus type II, uncontrolled Current Visit: No Status: Chronic Qualifiers: Diabetes mellitus machine tool designer insulin use: with machine tool designer use Diabetes mellitus complication status: without complication Qualified Code(s): E11.65 - Type 2 diabetes mellitus with hyperglycemia; Z79.4 - materials associate (current) use of insulin; Z79.4 - residential (current) use of insulin; Z79.4 - materials associate ( current) use of insulin; Z79.4 - residential (current) use of insulin (9) GERD (gastroesophageal reflux disease) Current Visit: No Status: Chronic Qualifiers: Esophagitis presence: without esophagitis Qualified Code(s): K21.9 - Gastro -esophageal reflux disease without esophagitis (10) Hypertension Current Visit: No Status: Chronic Qualifiers: Hypertension type: essential hypertension Qualified Code(s): I10 - Essential (primary) hypertension (11) Positive PPD, treated Current Visit: No Status: Resolved - Initial Treatment Plan Initial Treatment Plan: 1) Continue Seroquel 100 mg po HS. 2) Monitor progress
[2018-03-10 15:03] VITALS: BMI 24.0
[2018-03-10] MEDS: INSULIN SLIDING SCALE (NOVOLOG) 1 VIAL SQ SCH ×2 (17:08→21:42)
[2018-03-10] MEDS ORDERED: INSULIN (NOVOLOG) ASPART 100 UNITS/ML 10ML VIAL ONE ×2 (17:10→21:42)
[2018-03-10] MEDS: INSULIN (LEVEMIR) 100 UNITS/ML UNITS SQ SCH (21:43)
[2018-03-10] MEDS: QUEtiapine FUMARATE 100 MG TABLET (FP) PO SCH (21:45)
[2018-03-10] MEDS: THIAMINE HCL 100 MG TABLET (FP) PO SCH (21:45)
[2018-03-10] MEDS ORDERED: MELATONIN 5 MG TABLETS PO PRN (22:00)
[2018-03-11] MEDS: INSULIN SLIDING SCALE (NOVOLOG) 1 VIAL SQ SCH ×4 (07:06→21:28)
[2018-03-11] MEDS: ENALAPRIL MALEATE 10 MG TABLET (FP) PO SCH (11:30)
[2018-03-11] MEDS: NICOTINE 14 MG/24 HOURS TOPICAL PATCH TD SCH (11:30)
[2018-03-11] MEDS: PRENATAL VITAMINS W/ FOLIC ACID TABLET (FP) PO SCH (11:30)
[2018-03-11] MEDS ORDERED: INSULIN (NOVOLOG) ASPART 100 UNITS/ML 10ML VIAL ONE ×3 (11:34→21:35)
[2018-03-11] MEDS: INSULIN (LEVEMIR) 100 UNITS/ML UNITS SQ SCH (21:28)
[2018-03-11] MEDS: QUEtiapine FUMARATE 100 MG TABLET (FP) PO SCH (21:30)
[2018-03-11] MEDS: THIAMINE HCL 100 MG TABLET (FP) PO SCH (21:30)
[2018-03-12] MEDS: INSULIN SLIDING SCALE (NOVOLOG) 1 VIAL SQ SCH ×4 (07:12→21:35)
[2018-03-12] MEDS: ENALAPRIL MALEATE 10 MG TABLET (FP) PO SCH (12:01)
[2018-03-12] MEDS: NICOTINE 14 MG/24 HOURS TOPICAL PATCH TD SCH (12:01)
[2018-03-12] MEDS: PRENATAL VITAMINS W/ FOLIC ACID TABLET (FP) PO SCH (12:01)
[2018-03-12] MEDS ORDERED: INSULIN (NOVOLOG) ASPART 100 UNITS/ML 10ML VIAL ONE ×3 (12:10→21:37)
[2018-03-12] MEDS: INSULIN (LEVEMIR) 100 UNITS/ML UNITS SQ SCH (21:34)
[2018-03-12] MEDS: THIAMINE HCL 100 MG TABLET (FP) PO SCH (21:36)
[2018-03-12] MEDS: QUEtiapine FUMARATE 100 MG TABLET (FP) PO SCH (21:36)
[2018-03-13] MEDS: INSULIN SLIDING SCALE (NOVOLOG) 1 VIAL SQ SCH ×4 (06:53→21:43)
[2018-03-13] MEDS: NICOTINE 14 MG/24 HOURS TOPICAL PATCH TD SCH (10:38)
[2018-03-13] MEDS: ENALAPRIL MALEATE 10 MG TABLET (FP) PO SCH (10:38)
[2018-03-13] MEDS: PRENATAL VITAMINS W/ FOLIC ACID TABLET (FP) PO SCH (10:38)
[2018-03-13] MEDS: IBUPROFEN 400 MG TABLET (FP) PO PRN (11:54)
[2018-03-13] MEDS ORDERED: INSULIN (NOVOLOG) ASPART 100 UNITS/ML 10ML VIAL ONE (11:55)
[2018-03-13] MEDS: THIAMINE HCL 100 MG TABLET (FP) PO SCH (21:43)
[2018-03-13] MEDS: QUEtiapine FUMARATE 100 MG TABLET (FP) PO SCH (21:43)
[2018-03-13] MEDS: INSULIN (LEVEMIR) 100 UNITS/ML UNITS SQ SCH (21:45)
[2018-03-14] MEDS: INSULIN SLIDING SCALE (NOVOLOG) 1 VIAL SQ SCH ×4 (07:01→21:07)
[2018-03-14] MEDS: NICOTINE 14 MG/24 HOURS TOPICAL PATCH TD SCH (10:43)
[2018-03-14] MEDS: PRENATAL VITAMINS W/ FOLIC ACID TABLET (FP) PO SCH (10:43)
[2018-03-14] MEDS: ENALAPRIL MALEATE 10 MG TABLET (FP) PO SCH (10:43)
[2018-03-14] MEDS ORDERED: INSULIN (NOVOLOG) ASPART 100 UNITS/ML 10ML VIAL ONE ×3 (11:56→21:07)
[2018-03-14] MEDS: INSULIN (LEVEMIR) 100 UNITS/ML UNITS SQ SCH (21:08)
[2018-03-14] MEDS: QUEtiapine FUMARATE 100 MG TABLET (FP) PO SCH (21:09)
[2018-03-14] MEDS: THIAMINE HCL 100 MG TABLET (FP) PO SCH (21:09)
[2018-03-15] MEDS: INSULIN SLIDING SCALE (NOVOLOG) 1 VIAL SQ SCH ×4 (06:57→21:49)
[2018-03-15] MEDS: ENALAPRIL MALEATE 10 MG TABLET (FP) PO SCH (10:26)
[2018-03-15] MEDS: PRENATAL VITAMINS W/ FOLIC ACID TABLET (FP) PO SCH (10:26)
[2018-03-15] MEDS: IBUPROFEN 400 MG TABLET (FP) PO PRN (10:27)
[2018-03-15] MEDS: NICOTINE 14 MG/24 HOURS TOPICAL PATCH TD SCH (10:27)
[2018-03-15] MEDS ORDERED: INSULIN (NOVOLOG) ASPART 100 UNITS/ML 10ML VIAL ONE ×3 (11:40→21:49)
[2018-03-15] MEDS: INSULIN (LEVEMIR) 100 UNITS/ML UNITS SQ SCH (21:47)
[2018-03-15] MEDS: THIAMINE HCL 100 MG TABLET (FP) PO SCH (21:50)
[2018-03-15] MEDS: QUEtiapine FUMARATE 100 MG TABLET (FP) PO SCH (21:50)
[2018-03-16] MEDS: INSULIN SLIDING SCALE (NOVOLOG) 1 VIAL SQ SCH ×4 (07:33→21:49)
[2018-03-16] MEDS ORDERED: INSULIN (NOVOLOG) ASPART 100 UNITS/ML 10ML VIAL ONE ×3 (07:33→22:40)
[2018-03-16] MEDS: PRENATAL VITAMINS W/ FOLIC ACID TABLET (FP) PO SCH (10:25)
[2018-03-16] MEDS: ENALAPRIL MALEATE 10 MG TABLET (FP) PO SCH (10:25)
[2018-03-16] MEDS: IBUPROFEN 400 MG TABLET (FP) PO PRN (10:26)
[2018-03-16] MEDS: NICOTINE 14 MG/24 HOURS TOPICAL PATCH TD SCH (10:54)
--- NOTE | 2018-03-16 13:22 | PN ---
[facility] Progress Note Note: shoulder pain. Vital Signs Temperature 98 F 03/16/18 06:56 Pulse Rate 83 03/16/18 10:10 Respiratory Rate 18 03/16/18 06:56 Blood Pressure 113/70 03/16/18 10:10 O2 Sat by Pulse Oximetry (%) top lidocaine patch continue to monitor
[2018-03-16] MEDS: LIDOCAINE 5% TOPICAL PATCH TP SCH (14:45)
[2018-03-16] MEDS: QUEtiapine FUMARATE 100 MG TABLET (FP) PO SCH (21:44)
[2018-03-16] MEDS: THIAMINE HCL 100 MG TABLET (FP) PO SCH (21:44)
[2018-03-16] MEDS: INSULIN (LEVEMIR) 100 UNITS/ML UNITS SQ SCH (21:45)
[2018-03-16] MEDS: LIDOCAINE PATCH REMOVAL MC SCH (21:47)
[2018-03-17] MEDS ORDERED: INSULIN (NOVOLOG) ASPART 100 UNITS/ML 10ML VIAL ONE ×3 (06:29→21:57)
[2018-03-17] MEDS: INSULIN SLIDING SCALE (NOVOLOG) 1 VIAL SQ SCH ×4 (06:30→21:57)
[2018-03-17] MEDS: LIDOCAINE 5% TOPICAL PATCH TP SCH (10:32)
[2018-03-17] MEDS: NICOTINE 14 MG/24 HOURS TOPICAL PATCH TD SCH (10:33)
[2018-03-17] MEDS: ENALAPRIL MALEATE 10 MG TABLET (FP) PO SCH (10:33)
[2018-03-17] MEDS: PRENATAL VITAMINS W/ FOLIC ACID TABLET (FP) PO SCH (10:33)
[2018-03-17] MEDS: THIAMINE HCL 100 MG TABLET (FP) PO SCH (21:55)
[2018-03-17] MEDS: QUEtiapine FUMARATE 100 MG TABLET (FP) PO SCH (21:58)
[2018-03-17] MEDS: INSULIN (LEVEMIR) 100 UNITS/ML UNITS SQ SCH (21:58)
[2018-03-17] MEDS: LIDOCAINE PATCH REMOVAL MC SCH (21:58)
[2018-03-18] MEDS: INSULIN SLIDING SCALE (NOVOLOG) 1 VIAL SQ SCH ×4 (06:45→23:11)
--- NOTE | 2018-03-18 07:47 | PN ---
[facility] Progress Note Note: MD'S NOTE: CALLED TO SEE THE PT. WHO IS HAVING CHEST PAINS SUB: HAVING MILD PRESSURE LIKE PAINS ON AND OFF IN THE PRE-CARDIAL REGION FOR SEVERAL WEEKS DENIES: SOB, PALPITATIONS, N/V, DIZZINESS OBJ: THE PT. IS FONSECA X 3, NOT IN DISTRESS AND HE IS AMBULATORY. V/S: 97.7F-18-83-93/64 S/E: CVS: -JVD, NL HEART SOUNDS, NO MURMURS LUNGS: VESICULAR BREATH SOUNDS, NO RALES, NO RHONCHI, NO WHEEZING ABD: SOFT, NT, B.S.+ IMPRESSION: CHEST PAIN - SEC. TO ?:MUSCULO-SKELETAL ORIGIN :CAD PLANS: -EKG: NSR AT 80, 'Q' WAVE WITH INVERTED 'T'S IN I AND AVL - ? OLD/NEW - NO PREVIOUS EKG IS AVAILABLE FOR COMPARISON. -BLOOD TROPONIN LEVELS WERE ORDERED FOR FURTHER MANAGEMENT -CLOSE MONITORING -WILL CONSIDER TRANSFER TO THE ER, IN THE EVENT OF WORSENING/ PERSISTING PAIN PROVIDER: JONAS FULTON MD
[2018-03-18] MEDS: LIDOCAINE 5% TOPICAL PATCH TP SCH (09:55)
[2018-03-18] MEDS: PRENATAL VITAMINS W/ FOLIC ACID TABLET (FP) PO SCH (09:55)
[2018-03-18] MEDS: ENALAPRIL MALEATE 10 MG TABLET (FP) PO SCH (09:56)
[2018-03-18] MEDS: NICOTINE 14 MG/24 HOURS TOPICAL PATCH TD SCH (09:56)
[2018-03-18 10:36] LABS: EOS % 2.3 % (0-4.5); HEMATOCRIT 43.8 % (35.4-49); HEMOGLOBIN 15.4 GM/dL (11.7-16.9); LYMPH % 42.8 % (8-40); MCH 31.6 pg (25.7-33.7); MCHC 35.1 g/dl (32.0-35.9); MEAN PLT VOLUME 8.3 fl (7.5-11.1); MONO % 8.9 % (3.8-10.2); PLATELET COUNT 192 K/MM3 (134-434); RBC 4.86 M/mm3 (4.00-5.60); RDW 13.5 % (11.9-15.9); WHITE BLOOD COUNT 7.7 K/mm3 (4.0-10.0)
[2018-03-18 10:52] LABS: INR 0.96 (0.82-1.09); PROTHROMBIN TIME (PATIENT) 10.8 SEC (9.7-13.0)
[2018-03-18 10:55] LABS: ANION GAP 4 (8-16); BLOOD UREA NITROGEN 15 mg/dL (7-18); CALCIUM 8.4 mg/dL (8.5-10.1); CHLORIDE 103 mmol/L (98-107); CO2 33 mmol/L (21-32); CREATININE 0.9 mg/dL (0.7-1.3); GLUCOSE,RANDOM 123 mg/dL (74-106); POTASSIUM 4.2 mmol/L (3.5-5.1); SODIUM 140 mmol/L (136-145)
[2018-03-18] MEDS ORDERED: INSULIN (NOVOLOG) ASPART 100 UNITS/ML 10ML VIAL ONE ×2 (11:53→23:12)
--- NOTE | 2018-03-18 14:12 | PN ---
[facility] Progress Note Note: PATIENT REPORTS INTERMITTENT CHEST DISCOMFORT PRIMARILY ON LEFT SIDE OF CHEST (6 /10 ON PAIN SCALE, DULL-ACHING IN NATURE) X APPROX. 1 WEEK. PATIENT REPORTS THAT DISCOMFORT OCCURS SEVERAL TIMES PER DAY AND LASTS FOR SEVERAL SECONDS TO ONE MINUTE WHEN IT DOES OCCUR. PATIENT DENIES ANY KNOWN HISTORY OF CARDIAC OR LUNG DISEASE. LUNG SOUNDS AUSCULTATED CLEAR AND EQUAL BILATERALLY. S1, S2. PATIENT DENIES SOB. PATIENT PREVIOUSLY EVALUATED LAST NIGHT BY OVERNIGHT MEDICAL PROVIDER FOR SAME CONDITION. PT/INR, TROPONIN I LEVELS ORDERED (RESULTS NOTED) AND REPEAT ECG ORDERED (RESULTS NOTED, CHANGE NOTED IN COMPARISON TO ADMISSION ECG). REPORT GIVEN TO DR. EFRA SAPP AT [facility]. PATIENT TO BE TAKEN TO [facility] VIA AMBULANCE FOR FURTHER MEDICAL EVALUATION. Vinicius ARRIAGA NP
[2018-03-18] MEDS: LIDOCAINE PATCH REMOVAL MC SCH (23:07)
[2018-03-18] MEDS: INSULIN (LEVEMIR) 100 UNITS/ML UNITS SQ SCH (23:13)
[2018-03-18] MEDS: QUEtiapine FUMARATE 100 MG TABLET (FP) PO SCH (23:15)
[2018-03-18] MEDS: THIAMINE HCL 100 MG TABLET (FP) PO SCH (23:15)
[2018-03-19] MEDS: INSULIN SLIDING SCALE (NOVOLOG) 1 VIAL SQ SCH ×4 (06:58→22:24)
[2018-03-19] MEDS: NICOTINE 14 MG/24 HOURS TOPICAL PATCH TD SCH (10:14)
[2018-03-19] MEDS: LIDOCAINE 5% TOPICAL PATCH TP SCH (10:14)
[2018-03-19] MEDS: ENALAPRIL MALEATE 10 MG TABLET (FP) PO SCH (10:14)
[2018-03-19] MEDS: PRENATAL VITAMINS W/ FOLIC ACID TABLET (FP) PO SCH (10:14)
[2018-03-19] MEDS: IBUPROFEN 400 MG TABLET (FP) PO PRN (10:15)
[2018-03-19] MEDS ORDERED: INSULIN (NOVOLOG) ASPART 100 UNITS/ML 10ML VIAL ONE ×3 (11:43→22:21)
[2018-03-19] MEDS: QUEtiapine FUMARATE 100 MG TABLET (FP) PO SCH (22:17)
[2018-03-19] MEDS: THIAMINE HCL 100 MG TABLET (FP) PO SCH (22:17)
[2018-03-19] MEDS: LIDOCAINE PATCH REMOVAL MC SCH (22:24)
[2018-03-19] MEDS ORDERED: INSULIN (LEVEMIR) 100 UNITS/ML UNITS SQ ONE (22:38)
[2018-03-19] MEDS: INSULIN (LEVEMIR) 100 UNITS/ML UNITS SQ SCH (23:05)
[2018-03-20] MEDS: INSULIN SLIDING SCALE (NOVOLOG) 1 VIAL SQ SCH ×4 (06:54→21:58)
[2018-03-20] MEDS: NICOTINE 14 MG/24 HOURS TOPICAL PATCH TD SCH (10:04)
[2018-03-20] MEDS: LIDOCAINE 5% TOPICAL PATCH TP SCH (10:04)
[2018-03-20] MEDS: PRENATAL VITAMINS W/ FOLIC ACID TABLET (FP) PO SCH (10:04)
[2018-03-20] MEDS: ENALAPRIL MALEATE 10 MG TABLET (FP) PO SCH (10:05)
[2018-03-20] MEDS ORDERED: INSULIN (NOVOLOG) ASPART 100 UNITS/ML 10ML VIAL ONE ×3 (11:30→21:56)
--- NOTE | 2018-03-20 14:01 | PN ---
BHS Progress Note Note: PATIENT COMPLAINS OF NECK SPASMS. DENIES FEVER, LIGHT SENSITIVITY AND INJURY. PE : NECK WITH +FROM. NO SWELLING OR REDNESS NOTED. WILL ADD LIDOCAINE PATCH TO NECK AREA AND CONTINUE TO MONITOR CLINICALLY.
[2018-03-20] MEDS: QUEtiapine FUMARATE 100 MG TABLET (FP) PO SCH (21:56)
[2018-03-20] MEDS: THIAMINE HCL 100 MG TABLET (FP) PO SCH (21:56)
[2018-03-20] MEDS: INSULIN (LEVEMIR) 100 UNITS/ML UNITS SQ SCH (21:58)
[2018-03-20] MEDS: LIDOCAINE PATCH REMOVAL MC SCH (23:43)
--- NOTE | 2018-03-21 00:50 | EKG ---
Test Reason : Blood Pressure : / mmHG Vent. Rate : 076 BPM Atrial Rate : 076 BPM P-R Int : 154 ms QRS Dur : 092 ms QT Int : 370 ms P-R-T Axes : 069 044 055 degrees QTc Int : 416 ms NORMAL SINUS RHYTHM NORMAL ECG WHEN COMPARED WITH ECG OF 06-MAR-2018 16:58, NO SIGNIFICANT CHANGE WAS FOUND Confirmed by SANTO LAZAR MD ([id number]) on 03/21/2018 12:50:41 AM Referred By: Confirmed By:SANTO LAZAR MD
[2018-03-21] MEDS: INSULIN SLIDING SCALE (NOVOLOG) 1 VIAL SQ SCH ×4 (06:36→21:51)
[2018-03-21] MEDS: ENALAPRIL MALEATE 10 MG TABLET (FP) PO SCH (09:39)
[2018-03-21] MEDS: PRENATAL VITAMINS W/ FOLIC ACID TABLET (FP) PO SCH (09:39)
[2018-03-21] MEDS: IBUPROFEN 400 MG TABLET (FP) PO PRN (09:39)
[2018-03-21] MEDS: LIDOCAINE 5% TOPICAL PATCH TP SCH (09:40)
[2018-03-21] MEDS: NICOTINE 14 MG/24 HOURS TOPICAL PATCH TD SCH (10:50)
[2018-03-21] MEDS ORDERED: INSULIN (NOVOLOG) ASPART 100 UNITS/ML 10ML VIAL ONE ×3 (11:51→21:50)
--- NOTE | 2018-03-21 13:20 | PN ---
Psychiatric Progress Note Vital Signs: Vital Signs Period Temp Pulse Resp BP Sys/Magana Pulse Ox Last 24 Hr 97.9 F 86 20-20 111/65 Date of Session: 03/21/18 Chief Complaint:: Insomnia HPI: Patient addressing Alcohol, Cocaine and Cannabis Dependence comorbid with Bipolar Disorder, Substance-Induced Mood Disorder and Substance-Induced Sleep Disorder ROS: Type 2 DM Current Medications: Active Medications Generic Name Dose Route Start Last Admin Trade Name Freq PRN Reason Stop Dose Admin Acetaminophen 650 mg 03/10/18 13:33 Tylenol - PO Q4H PRN FEVER Al Hydroxide/Mg Hydroxide 30 ml 03/10/18 13:33 Mylanta Oral Suspension - PO Q6H PRN DYSPEPSIA Enalapril Maleate 10 mg 03/11/18 10:00 03/21/18 09:39 Vasotec - PO 10 mg DAILY JESSIKA Administration Eucalyptus/Menthol/Phenol/Sorbitol 1 each 03/10/18 13:33 Cepastat Lozenge - MM Q4H PRN SORE THROAT Guaifenesin 10 ml 03/10/18 13:33 Robitussin Dm - PO Q6H PRN COUGH Ibuprofen 400 mg 03/10/18 13:33 03/21/18 09:39 Motrin - PO 400 mg Q6H PRN Administration Pain Level 4-6 Insulin Aspart 0 vial 03/10/18 16:30 03/21/18 11:51 Novolog Vial Sliding Scale - SQ 2 units ACHS JESSIKA Administration Protocol Insulin Detemir 60 units 03/10/18 22:00 03/20/18 21:58 Levemir Vial SQ 60 unit HS JESSIKA Administration Lidocaine 2 patch 03/20/18 13:59 03/21/18 09:40 Lidoderm Patch - TP 2 patch DAILY JESSIKA Administration Loperamide HCl 4 mg 03/10/18 13:33 Imodium - PO Q6H PRN DIARRHEA Magnesium Citrate 300 ml 03/10/18 13:33 Citroma - PO Q48H PRN CONSTIPATION Magnesium Hydroxide 30 ml 03/10/18 13:33 Milk Of Magnesia - PO DAILY PRN CONSTIPATION Melatonin 5 mg 03/10/18 22:00 Melatonin PO HS PRN INSOMNIA Miscellaneous 1 each 03/16/18 22:00 03/20/18 23:43 Lidoderm Patch Removal MC 1 each DAILY@2200 JESSIKA Administration Nicotine 14 mg 03/11/18 10:00 03/21/18 10:50 Nicoderm Patch - TD Not Given DAILY JESSIKA Nicotine Polacrilex 2 mg 03/10/18 13:33 Nicorette Gum - BUC Q2H PRN NICOTINE REPLACEMENT RX Multivit/Folic Acid/Iron 1 tab 03/11/18 10:00 03/21/18 09:39 Vitamins (Sjr) - PO 1 tab DAILY JESSIKA Administration Pseudoephedrine/Triprolidine 1 combo 03/10/18 13:33 Actifed - PO TID PRN NASAL CONGESTION Quetiapine Fumarate 200 mg 03/21/18 22:00 Seroquel - PO HS JESSIKA Thiamine HCl 100 mg 03/10/18 22:00 03/20/18 21:56 Vitamin B1 - PO 100 mg HS JESSIKA Administration Current Side Effect: No Lab tests ordered: Yes Lab tests reviewed: Yes Provider note:: Patient reports experiencing difficulty to sleep despite taking Seroquel 100 mg po HS. Requests that medication dosage be increased Total face to face time:: 15 Mental Status Exam - Mental Status Exam Alert and Oriented to: Time, Place, Person Cognitive Function: Fair Patient Appearance: Well Groomed Mood: Hopeful, Euthymic Affect: Appropriate Patient Behavior: Cooperative Speech Pattern: Clear Voice Loudness: Normal Thought Process: Intact, Goal Oriented Thought Disorder: Not Present Hallucinations: Denies Suicidal Ideation: Denies Homicidal Ideation: Denies Insight/Judgement: Fair Sleep: Poorly Appetite: Good Muscle strength/Tone: Normal Gait/Station: Normal Psychiatric Treatment Plan - Problem List (1) Alcohol dependence Current Visit: Yes (2) Cocaine dependence Current Visit: No Qualifiers: Substance use status: uncomplicated Qualified Code(s): F14.20 - Cocaine dependence, uncomplicated (3) Cannabis dependence Current Visit: No (4) Nicotine dependence Current Visit: No Qualifiers: Nicotine product type: cigarettes Substance use status: in withdrawal Qualified Code(s): F17.213 - Nicotine dependence, cigarettes, with withdrawal (5) History of bipolar disorder Current Visit: No (6) Substance induced mood disorder Current Visit: Yes (7) Substance-induced sleep disorder Current Visit: Yes (8) Diabetes mellitus type II, uncontrolled Current Visit: No Qualifiers: Diabetes mellitus chcf insulin use: with rodent exterminator use Diabetes mellitus complication status: without complication Qualified Code(s): E11.65 - Type 2 diabetes mellitus with hyperglycemia; Z79.4 - buttermaker helper (current) use of insulin; Z79.4 - buttermaker helper (current) use of insulin; Z79.4 - custodial ( current) use of insulin; Z79.4 - custodial (current) use of insulin (9) GERD (gastroesophageal reflux disease) Current Visit: No Qualifiers: Esophagitis presence: without esophagitis Qualified Code(s): K21.9 - Gastro -esophageal reflux disease without esophagitis (10) Hypertension Current Visit: No Qualifiers: Hypertension type: essential hypertension Qualified Code(s): I10 - Essential (primary) hypertension (11) Positive PPD, treated Current Visit: No Initial treatment plan: 1) Discontinue Seroquel 100 mg po HS. 2) Start Seroquel 200 mg po HS. 3) Monitor progress
[2018-03-21] MEDS: LIDOCAINE PATCH REMOVAL MC SCH (21:47)
[2018-03-21] MEDS: THIAMINE HCL 100 MG TABLET (FP) PO SCH (21:47)
[2018-03-21] MEDS: QUEtiapine FUMARATE 200 MG TABLET PO SCH (21:47)
[2018-03-21] MEDS: INSULIN (LEVEMIR) 100 UNITS/ML UNITS SQ SCH (21:51)
[2018-03-22] MEDS: INSULIN SLIDING SCALE (NOVOLOG) 1 VIAL SQ SCH ×4 (10:31→21:14)
[2018-03-22] MEDS: NICOTINE 14 MG/24 HOURS TOPICAL PATCH TD SCH (10:32)
[2018-03-22] MEDS: PRENATAL VITAMINS W/ FOLIC ACID TABLET (FP) PO SCH (10:32)
[2018-03-22] MEDS: LIDOCAINE 5% TOPICAL PATCH TP SCH (10:32)
[2018-03-22] MEDS: ENALAPRIL MALEATE 10 MG TABLET (FP) PO SCH (10:32)
[2018-03-22] MEDS: IBUPROFEN 400 MG TABLET (FP) PO PRN (10:33)
[2018-03-22] MEDS ORDERED: INSULIN (NOVOLOG) ASPART 100 UNITS/ML 10ML VIAL ONE ×3 (11:22→22:08)
[2018-03-22] MEDS: QUEtiapine FUMARATE 200 MG TABLET PO SCH (21:14)
[2018-03-22] MEDS: THIAMINE HCL 100 MG TABLET (FP) PO SCH (21:15)
[2018-03-22] MEDS: LIDOCAINE PATCH REMOVAL MC SCH (21:16)
[2018-03-22] MEDS: INSULIN (LEVEMIR) 100 UNITS/ML UNITS SQ SCH (21:16)
[2018-03-23] MEDS: INSULIN SLIDING SCALE (NOVOLOG) 1 VIAL SQ SCH ×4 (06:40→21:11)
[2018-03-23] MEDS: NICOTINE 14 MG/24 HOURS TOPICAL PATCH TD SCH (10:12)
[2018-03-23] MEDS: PRENATAL VITAMINS W/ FOLIC ACID TABLET (FP) PO SCH (10:12)
[2018-03-23] MEDS: LIDOCAINE 5% TOPICAL PATCH TP SCH (10:12)
[2018-03-23] MEDS: ENALAPRIL MALEATE 10 MG TABLET (FP) PO SCH (10:12)
[2018-03-23] MEDS ORDERED: INSULIN (NOVOLOG) ASPART 100 UNITS/ML 10ML VIAL ONE ×3 (11:19→21:09)
--- NOTE | 2018-03-23 19:27 | PN ---
Psychiatric Progress Note Vital Signs: Vital Signs Period Temp Pulse Resp BP Sys/Magana Pulse Ox Last 24 Hr 97.7 F 82 18-18 107/75 Date of Session: 03/23/18 Chief Complaint:: Discharge Note HPI: Patient addressing Alcohol, Cocaine and Cannabis Dependencde comorbid with Nicotine Dependencde, Substance-Induced Mood Disorder and Substance-Induced Sleep Disorder ROS: Type 2 DM was medically managed Current Medications: Active Medications Generic Name Dose Route Start Last Admin Trade Name Freq PRN Reason Stop Dose Admin Acetaminophen 650 mg 03/10/18 13:33 Tylenol - PO Q4H PRN FEVER Al Hydroxide/Mg Hydroxide 30 ml 03/10/18 13:33 Mylanta Oral Suspension - PO Q6H PRN DYSPEPSIA Enalapril Maleate 10 mg 03/11/18 10:00 03/23/18 10:12 Vasotec - PO 10 mg DAILY JESSIKA Administration Eucalyptus/Menthol/Phenol/Sorbitol 1 each 03/10/18 13:33 Cepastat Lozenge - MM Q4H PRN SORE THROAT Guaifenesin 10 ml 03/10/18 13:33 Robitussin Dm - PO Q6H PRN COUGH Ibuprofen 400 mg 03/10/18 13:33 03/22/18 10:33 Motrin - PO 400 mg Q6H PRN Administration Pain Level 4-6 Insulin Aspart 0 vial 03/10/18 16:30 03/23/18 17:17 Novolog Vial Sliding Scale - SQ 4 units ACHS JESSIKA Administration Protocol Insulin Detemir 60 units 03/10/18 22:00 03/22/18 21:16 Levemir Vial SQ 60 unit HS JESSIKA Administration Lidocaine 2 patch 03/20/18 13:59 03/23/18 10:12 Lidoderm Patch - TP 2 patch DAILY JESSIKA Administration Loperamide HCl 4 mg 03/10/18 13:33 Imodium - PO Q6H PRN DIARRHEA Magnesium Citrate 300 ml 03/10/18 13:33 Citroma - PO Q48H PRN CONSTIPATION Magnesium Hydroxide 30 ml 03/10/18 13:33 Milk Of Magnesia - PO DAILY PRN CONSTIPATION Melatonin 5 mg 03/10/18 22:00 Melatonin PO HS PRN INSOMNIA Miscellaneous 1 each 03/16/18 22:00 03/22/18 21:16 Lidoderm Patch Removal MC 1 each DAILY@2200 JESSIKA Administration Nicotine 14 mg 03/11/18 10:00 03/23/18 10:12 Nicoderm Patch - TD Not Given DAILY JESSIKA Nicotine Polacrilex 2 mg 03/10/18 13:33 Nicorette Gum - BUC Q2H PRN NICOTINE REPLACEMENT RX Multivit/Folic Acid/Iron 1 tab 03/11/18 10:00 03/23/18 10:12 Vitamins (Sjr) - PO 1 tab DAILY JESSIKA Administration Pseudoephedrine/Triprolidine 1 combo 03/10/18 13:33 Actifed - PO TID PRN NASAL CONGESTION Quetiapine Fumarate 200 mg 03/21/18 22:00 03/22/18 21:14 Seroquel - PO 200 mg HS JESSIKA Administration Thiamine HCl 100 mg 03/10/18 22:00 03/22/18 21:15 Vitamin B1 - PO 100 mg HS JESSIKA Administration Current Side Effect: No Lab tests ordered: Yes Lab tests reviewed: Yes Provider note:: Patient will complete this program on 03/24/18. He has met his treatment goals and will continue to address his issues in outpatient treatment at [facility] at [address] [place] [address]. Told newswriter that rom his participation in this program, he has learned the importance of surrounding himself with positive people for him to stay clean. He responded well to Seroquel 200 mg po HS. Script for that medication will be electronically transmitted to [facility] at [phone] [place] [address] Total face to face time:: 35 Mental Status Exam - Mental Status Exam Alert and Oriented to: Time, Place, Person Cognitive Function: Fair Patient Appearance: Well Groomed Mood: Hopeful, Euthymic Affect: Appropriate Patient Behavior: Cooperative Speech Pattern: Clear Voice Loudness: Normal Thought Process: Intact Thought Disorder: Not Present Hallucinations: Denies Suicidal Ideation: Denies Homicidal Ideation: Denies Insight/Judgement: Fair Sleep: Fair Appetite: Good Muscle strength/Tone: Normal Gait/Station: Normal Psychiatric Treatment Plan - Problem List (1) Alcohol dependence Current Visit: Yes (2) Cocaine dependence Current Visit: No Qualifiers: Substance use status: uncomplicated Qualified Code(s): F14.20 - Cocaine dependence, uncomplicated (3) Cannabis dependence Current Visit: No (4) Nicotine dependence Current Visit: No Qualifiers: Nicotine product type: cigarettes Substance use status: in withdrawal Qualified Code(s): F17.213 - Nicotine dependence, cigarettes, with withdrawal (5) History of bipolar disorder Current Visit: No (6) Substance induced mood disorder Current Visit: Yes (7) Substance-induced sleep disorder Current Visit: Yes (8) Diabetes mellitus type II, uncontrolled Current Visit: No Qualifiers: Diabetes mellitus halfway insulin use: with halfway use Diabetes mellitus complication status: without complication Qualified Code(s): E11.65 - Type 2 diabetes mellitus with hyperglycemia; Z79.4 - group home (current) use of insulin (9) GERD (gastroesophageal reflux disease) Current Visit: No Qualifiers: Esophagitis presence: without esophagitis Qualified Code(s): K21.9 - Gastro -esophageal reflux disease without esophagitis (10) Hypertension Current Visit: No Qualifiers: Hypertension type: essential hypertension Qualified Code(s): I10 - Essential (primary) hypertension (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
[2018-03-23] MEDS: THIAMINE HCL 100 MG TABLET (FP) PO SCH (21:10)
[2018-03-23] MEDS: QUEtiapine FUMARATE 200 MG TABLET PO SCH (21:10)
[2018-03-23] MEDS: INSULIN (LEVEMIR) 100 UNITS/ML UNITS SQ SCH (21:11)
[2018-03-23] MEDS: LIDOCAINE PATCH REMOVAL MC SCH (21:11)
[2018-03-24] MEDS: INSULIN SLIDING SCALE (NOVOLOG) 1 VIAL SQ SCH (06:39)
[2018-03-24 07:15] VITALS: BP 120/85; PULSE 81; TEMP 97.9
[2018-03-24] MEDS ORDERED: PT OWN MED DRAWER 7, Y5N ONE (08:09)
[2018-03-24] MEDS: ENALAPRIL MALEATE 10 MG TABLET (FP) PO SCH (09:40)
[2018-03-24] MEDS: PRENATAL VITAMINS W/ FOLIC ACID TABLET (FP) PO SCH (09:40)
== END 2018-03-24 09:55 | disposition home or self-care (01) | DRG 772 ==
LOC: YASAS 13:15 → Y3W 13:16
PROVIDERS: ADMIT Psychiatry & Neurology Psychiatry; ATTEND Psychiatry & Neurology Psychiatry
PROC: HZ42ZZZ Group Counseling for Substance Abuse Treatment, Cognitive-Behavioral (ICD-10-PCS; principal; 2018-03-10)
DX: F10.20 Alcohol dependence, uncomplicated (principal); F14.20 Cocaine dependence, uncomplicated; F12.20 Cannabis dependence, uncomplicated; F17.210 Nicotine dependence, cigarettes, uncomplicated; F19.24 Other psychoactive substance dependence with psychoactive substance-induced mood disorder; F19.282 Other psychoactive substance dependence with psychoactive substance-induced sleep disorder; E11.65 Type 2 diabetes mellitus with hyperglycemia; K21.9 Gastro-esophageal reflux disease without esophagitis; R07.9 Chest pain, unspecified; R76.11 Nonspecific reaction to tuberculin skin test without active tuberculosis
CPT/HCPCS: 36415; 80048; 82962; 84484; 85025; 85610; 85730; 93005; 93010

== ENCOUNTER 2018-03-18 14:52 | Emergency (ER) | payer OTHER ==
[2018-03-18 15:02] VITALS: BMI 25.0
--- NOTE | 2018-03-18 15:59 | PDOC ---
History of Present Illness - General Chief Complaint: Chest Pain Stated Complaint: CHEST PAIN Time Seen by Provider: 03/18/18 14:54 History Source: Patient Exam Limitations: No Limitations - History of Present Illness Initial Comments: CHIEF COMPLAINT: 52 y/o male with PMH IDDM, HTN, cocaine dependence c/o chest pain x 1 week. HISTORY OF PRESENT ILLNESS: The patient is currently admitted to [facility] for detox of cocaine. he has been there for 2 weeks, with last cocaine use 3 weeks ago. He states for the past week he has been experiencing left sided chest pressure with left arm heaviness intermittently that lasts only a few seconds at a time. he denies f/c, n/v/d, cough, hemoptysis, SOB, abd pain, back pain, jaw pain. Vital signs on arrival are within normal limits. REVIEW OF SYSTEMS: GENERAL/CONSTITUTIONAL: No fever/chills. No weakness. No weight change. HEAD, EYES, EARS, NOSE AND THROAT: No change in vision. No ear pain or discharge. No sore throat. CARDIOVASCULAR: +intermittent chest pain. No shortness of breath. RESPIRATORY: No cough, wheezing, or hemoptysis. GASTROINTESTINAL: No abd pain, nausea, vomiting, diarrhea. GENITOURINARY: No dysuria, frequency, or change in urination. MUSCULOSKELETAL: No joint or muscle swelling or pain. No neck or back pain. SKIN: No rash or easy bruising. NEUROLOGIC: No headache, vertigo, loss of consciousness, or loss of sensation. PHYSICAL EXAM: GENERAL: The patient is awake, alert, and fully oriented, in no acute distress. He is well appearing and ambulatory. HEAD: Normal with no signs of trauma. ENT: Pupils equal, round and reactive to light, extraocular movements intact, sclera anicteric, conjunctiva clear. Neck supple. LUNGS: Clear to auscultation bilaterally. Normal excursion. No respiratory distress or use of accessory muscles. CV: RRR, S1/S2, no MRG. Cap refill < 2 sec. CHEST WALL: Slight TTP of left anterior chest wall. ABDOMEN: Soft, non-distended, non-tender even to deep palpation, no hepatomegaly or splenomegaly, no masses. EXTREMITIES: Normal range of motion, no edema. NEUROLOGICAL: Normal speech, normal gait. CN II-XII grossly intact. PSYCH: Normal mood, normal affect. SKIN: Warm, dry, normal turgor, no rashes or lesions noted. Past History - Past Medical History Allergies/Adverse Reactions: Allergies Allergy/AdvReac Type Severity Reaction Status Date / Time No Known Allergies Allergy Verified 03/06/18 13:23 Home Medications: Ambulatory Orders Enalapril Maleate [Vasotec -] 10 mg PO DAILY 03/06/18 Insulin (Novolog) [Novolog Flexpen] 0 units SQ TID PRN 03/06/18 Quetiapine Fumarate [Seroquel] 100 mg PO HS #30 tablet 03/08/18 Insulin Glargine,Hum.rec.anlog [Lantus] 60 units SQ HS 03/09/18 Anemia: No Asthma: No Cancer: No Cardiac Disorders: No CVA: No COPD: No CHF: No Dementia: No Diabetes: Yes GI Disorders: No Disorders: No HTN: Yes Hypercholesterolemia: No Kidney Stones: No Liver Disease: No Seizures: No Thyroid Disease: No - Surgical History Abdominal Surgery: No Appendectomy: No Cardiac Surgery: No Cholecystectomy: No Lung Surgery: No Neurologic Surgery: No Orthopedic Surgery: No - Reproductive History Testicular Surgery: No - Suicide/Smoking/Psychosocial Hx Smoking History: Former smoker Have you smoked in the past 12 months: Yes Number of Cigarettes Smoked Daily: 8 Cigars Per Day: 0 Information on smoking cessation initiated: No 'Breaking Loose' booklet given: 03/06/18 Hx Alcohol Use: Yes (in rehab x 2 wks) Drug/Substance Use Hx: Yes Substance Use Type: Alcohol, Cocaine, Marijuana Hx Substance Use Treatment: Yes (One recent inpt detox @ [facility]) Cardiac Specific PMH - Complaint Specific PMHX Pacemaker: No *Physical Exam - Vital Signs Last Vital Signs Temp Pulse Resp BP Pulse Ox 98 F 75 20 113/73 100 03/18/18 14:58 03/18/18 14:58 03/18/18 14:58 03/18/18 14:58 03/18/18 14:58 Heart Score/ECG Review - ECG Intrepretation Comment:: Twelve-lead EKG was performed and reviewed by Dr. Brothers. There is normal sinus rhythm with a normal rate. The axis is normal. The intervals are normal. There are no ST or T wave abnormalities. Impression: Normal twelve-lead EKG ED Treatment Course - LABORATORY CBC & Chemistry Diagram: 03/18/18 16:20 03/18/18 16:20 - ADDITIONAL ORDERS Additional order review: Laboratory Results 03/18/18 16:20 Sodium 135 L Potassium 4.9 Chloride 101 Carbon Dioxide 30 Anion Gap 4 L BUN 16 Creatinine 0.8 Creat Clearance w eGFR > 60 Random Glucose 288 H D Calcium 8.3 L Total Bilirubin 0.3 D AST 15 D ALT 29 D Alkaline Phosphatase 65 Creatine Kinase 81 Troponin I < 0.02 Total Protein 6.5 Albumin 3.4 03/18/18 16:20 RBC 4.76 MCV 90.0 MCHC 33.9 RDW 13.5 MPV 8.2 Neutrophils % 53.0 Lymphocytes % 33.9 D Monocytes % 9.5 Eosinophils % 2.4 Basophils % 1.2 - RADIOLOGY Radiology Studies Ordered: Category Date Time Status CHEST PA & LAT [RAD] Stat Radiology 03/18/18 15:34 Taken Medical Decision Making - Medical Decision Making A/P: 52 y/o male with intermittent left sided chest pain x 1 week. Plan is as follows: 1. EKG 2. CXR 3. Labs EKG normal Labs unremarkable CXR normal I am signing this patient out to my colleague: CHAYO Chavez In brief, this patient is being seen in the ED for a chief complaint of: chest pain I have completed the initial assessment interview note and have ordered: ekg, cxr, labs I have reviewed the following results: all Pending results are: 2nd trop 8:30pm Plan for disposition is as follows: if 2nd troponin negative, discharge back to [facility] inpatient detox *DC/Admit/Observation/Transfer Diagnosis at time of Disposition: Cocaine dependence, Chest pain - Referrals - Patient Instructions - Post Discharge Activity
[2018-03-18 16:26] LABS: BASO % 1.2 % (0-2.0); EOS % 2.4 % (0-4.5); HEMATOCRIT 42.9 % (35.4-49); HEMOGLOBIN 14.5 GM/dL (11.7-16.9); LYMPH % 33.9 % (8-40); MCH 30.5 pg (25.7-33.7); MCHC 33.9 g/dl (32.0-35.9); MEAN PLT VOLUME 8.2 fl (7.5-11.1); MONO % 9.5 % (3.8-10.2); PLATELET COUNT 191 K/MM3 (134-434); RBC 4.76 M/mm3 (4.00-5.60); RDW 13.5 % (11.9-15.9)
[2018-03-18 16:51] LABS: ALBUMIN 3.4 g/dl (3.4-5.0); ANION GAP 4 (8-16); BILIRUBIN,TOTAL 0.3 mg/dL (0.2-1.0); BLOOD UREA NITROGEN 16 mg/dL (7-18); CALCIUM 8.3 mg/dL (8.5-10.1); CHLORIDE 101 mmol/L (98-107); CO2 30 mmol/L (21-32); CREATININE 0.8 mg/dL (0.7-1.3); GLUCOSE,RANDOM 288 mg/dL (74-106); POTASSIUM 4.9 mmol/L (3.5-5.1); SGOT/AST 15 U/L (15-37); SGPT/ALT 29 U/L (12-78); SODIUM 135 mmol/L (136-145); TOT PROT 6.5 g/dl (6.4-8.2)
[2018-03-18 16:54] LABS: ALK PHOS 65 U/L (45-117)
--- NOTE | 2018-03-18 19:19 | PDOC ---
*Physical Exam - Vital Signs Last Vital Signs Temp Pulse Resp BP Pulse Ox 98 F 75 20 113/73 100 03/18/18 14:58 03/18/18 14:58 03/18/18 14:58 03/18/18 14:58 03/18/18 14:58 ED Treatment Course - LABORATORY CBC & Chemistry Diagram: 03/18/18 16:20 03/18/18 16:20 - ADDITIONAL ORDERS Additional order review: Laboratory Results 03/18/18 16:20 Sodium 135 L Potassium 4.9 Chloride 101 Carbon Dioxide 30 Anion Gap 4 L BUN 16 Creatinine 0.8 Creat Clearance w eGFR > 60 Random Glucose 288 H D Calcium 8.3 L Total Bilirubin 0.3 D AST 15 D ALT 29 D Alkaline Phosphatase 65 Creatine Kinase 81 Troponin I < 0.02 Total Protein 6.5 Albumin 3.4 03/18/18 16:20 RBC 4.76 MCV 90.0 MCHC 33.9 RDW 13.5 MPV 8.2 Neutrophils % 53.0 Lymphocytes % 33.9 D Monocytes % 9.5 Eosinophils % 2.4 Basophils % 1.2 Progress Note - Progress Note Progress Note: Sign out received from RENO Castillo Summary of ED course- EKG-nml, initial troponin negative Pertinent studies/lab/EKG/consults- Meds given Anticipated plan/disposition- repeat troponin->likely d/c Medical Decision Making - Medical Decision Making 03/18/18 19:39 A/P: Briefly this is a 52-year-old male with history of intranasal cocaine and smoked cocaine use was currently in detox and has not had any cocaine for the past 3 weeks now with 1 week of chest pain. Initial troponin is negative. patient has a normal EKG. Repeat troponin at 8:00. if negative I will discharge the patient back to [facility]. 03/18/18 21:44 Laboratory Tests 03/18/18 03/18/18 16:20 21:00 Troponin I < 0.02 < 0.02 Given normal EKG and 2 negative troponins I will discharge the patient back to [facility] to continue with his cocaine detox and rehabilitation. 03/18/18 21:48 Signout given to [facility] [address] [place]. *DC/Admit/Observation/Transfer Diagnosis at time of Disposition: Cocaine dependence Qualifiers: Substance use status: uncomplicated Qualified Code(s): F14.20 - Cocaine dependence, uncomplicated Chest pain Qualifiers: Chest pain type: unspecified Qualified Code(s): R07.9 - Chest pain, unspecified - Discharge Dispostion Disposition: HOME Condition at time of disposition: Stable Decision to Admit order: No - Referrals - Patient Instructions Printed Discharge Instructions: DI for Atypical Chest Pain Additional Instructions: Continue to avoid cocaine Return to emergency department for any concerns. Thank you very much for choosing us to provide her emergent health care needs. - Post Discharge Activity
[2018-03-18 22:36] VITALS: BP 130/84; PULSE 74; TEMP 98
== END 2018-03-18 22:44 | disposition home or self-care (01) ==
LOC: JER 14:52
DX: R07.9 Chest pain, unspecified (principal); F14.20 Cocaine dependence, uncomplicated; I11.0 Hypertensive heart disease with heart failure; E11.9 Type 2 diabetes mellitus without complications; Z79.4 Long term (current) use of insulin
CPT/HCPCS: 36415; 71046-TC-FY; 80053; 82550; 84484; 85025; 99283-25

== ENCOUNTER 2018-08-01 10:23 | Inpatient (IN) | payer OTHER ==
[2018-08-01 10:40] VITALS: BMI 22.3
--- NOTE | 2018-08-01 10:56 | HP ---
CIWA Score - CIWA Score Nausea/Vomitin-No Nausea/No Vomiting Muscle Tremors: None Anxiety: 0-No Anxiety, at Ease Agitation: 0-Normal Activity Paroxysmal Sweats: No Perspiration Orientation: 0-Oriented Tacttile Disturbances: 0-None Auditory Disturbances: 0-None Visual Disturbances: 0-None Headache: 0-None Present CIWA-Ar Total Score: 0 Admission ROS BHS - HPI Allergies/Adverse Reactions: Allergies Allergy/AdvReac Type Severity Reaction Status Date / Time No Known Allergies Allergy Verified 08/01/18 11:25 History of Present Illness: patient here requesting detox from etoh use , reports latest use 2 d ago , usually 1 pint/day , starts drinking in the afternoons , denies seizures, blackouts , tremors . Denies symptoms if not drinking , states has been drinking x 20 years , longest sobriety 1 week , during his previous stay in this facility several months ago . Tried outpatient unsuccessfully , relapse after d/c from this facility . utox + thc, + ashley jose miguel 0.000 bp 171/94 P 86 pmhx : htn pshx : left elbow bone chip , left inguinal hernia , DM dx > 10 yrs ago psych : bipolar d/o meds : enalapril, seroquel, remeron, lithium , insulin tobacco : 1 ppd , denies nrt cocaine : 25 $ /day cannabis : every other day 10 $ upon verification from pharmacy as indicated by pt - [facility] [address] [facility] [phone] , pharmacist indicates pt has not had rx for Lantus since 2016 , and latest Novolog Flexpen was picked up in March 2018 . Upon further questioning , pt admits he was in [facility] after prior d/c from this facility , went to [facility] , has not seen provider since, no rx . Admits to poor compliance with medical appointments . Patient was strongly advised to obtain PCP and followup with regular medical care . Discussed at length risks of DM , verbalizes understanding and agreement w/ POC - Ebola screening Have you traveled outside of the country in the last 21 days: No Have you had contact with anyone from an Ebola affected area: No Have you been sick,other than usual withdrawal symptoms: No Do you have a fever: No Patient History - Patient Medical History Hx Anemia: No Hx Asthma: No Hx Chronic Obstructive Pulmonary Disease (COPD): No Hx Cancer: No Hx Cardiac Disorders: No Hx Congestive Heart Failure: No Hx Hypertension: Yes Hx Hypercholesterolemia: No Hx Pacemaker: No HX Cerebrovascular Accident: No Hx Seizures: No Hx Dementia: No Hx Diabetes: Yes Hx Gastrointestinal Disorders: No Hx Liver Disease: No Hx Genitourinary Disorders: No Hx Sexually Transmitted Disorders: No Hx Renal Disease (ESRD): No Hx Thyroid Disease: No Hx Human Immunodeficiency Virus (HIV): No Hx Hepatitis C: No Hx Depression: Yes Hx Suicide Attempt: No Hx Bipolar Disorder: Yes Hx Schizophrenia: No - Patient Surgical History Past Surgical History: No Hx Neurologic Surgery: No Hx Cataract Extraction: No Hx Cardiac Surgery: No Hx Lung Surgery: No Hx Breast Surgery: No Hx Breast Biopsy: No Hx Abdominal Surgery: No Hx Appendectomy: No Hx Cholecystectomy: No Hx Genitourinary Surgery: No Hx Section: No Hx Orthopedic Surgery: No Anesthesia Reaction: No - Smoking Cessation Smoking history: Former smoker Have you smoked in the past 12 months: Yes Aproximately how many cigarettes per day: 8 Cigars Per Day: 0 Hx Chewing Tobacco Use: No Initiated information on smoking cessation: Yes 'Breaking Loose' booklet given: 08/01/18 - Substances Abused Cocaine Route: Inhalation Frequency: 3-6 times per week Amount used: $75 Age of first use: 17 Date of Last Use: 07/31/18 Alcohol-vodka/rum/beer Route: Oral Frequency: Daily Amount used: 1 pt./3 (12 oz.) Age of first use: 17 Date of Last Use: 07/31/18 Marijuana Route: Smoking Frequency: 3-6 times per week Amount used: $20 Age of first use: 17 Date of Last Use: 07/31/18 Family Disease History - Family Disease History Family Disease History: Diabetes: Mother, Other: Father () Admission Physical Exam BHS - Vital Signs Vital Signs: Vital Signs - 24 hr 08/01/18 10:37 Temperature 98.5 F Pulse Rate 86 Respiratory 18 Rate Blood Pressure 171/94 H - Physical General Appearance: Yes: Within Normal Limits, No Apparent Distress, Nourished, Appropriately Dressed HEENTM: Yes: Within Normal Limits, EOMI, Hearing grossly Normal, Normal ENT Inspection, Normocephalic, ARNALDO, Pharynx Normal, Other (hoarse voice) Respiratory: Yes: Within Normal Limits, Chest Non-Tender, Lungs Clear, Normal Breath Sounds, No Respiratory Distress, No Accessory Muscle Use Neck: Yes: Within Normal Limits, No masses,lesions,Nodules, Trachea in good position Breast: Yes: Breast Exam Deferred Cardiology: Yes: Within Normal Limits, Regular Rhythm, Regular Rate Abdominal: Yes: Within Normal Limits, Normal Bowel Sounds, Non Tender, Flat, Soft Genitourinary: Yes: Within Normal Limits Back: Yes: Within Normal Limits, Normal Inspection Musculoskeletal: Yes: Within Normal Limits, full range of Motion, Gait Steady, Pelvis Stable Extremities: Yes: Within Normal Limits, Normal Capillary Refill, Normal Inspection, Normal Range of Motion, Non-Tender Neurological: Yes: Within Normal Limits, wash mill operator II-XII NML intact, Fully Oriented, Alert, Motor Strength 5/5, Normal Mood/Affect, Normal Response Integumentary: Yes: Within Normal Limits, Normal Color, Dry, Warm - Diagnostic (1) Alcohol dependence with uncomplicated withdrawal Current Visit: No Status: Acute (2) Cannabis dependence Current Visit: No Status: Acute (3) Cocaine dependence Current Visit: No Status: Acute Qualifiers: Substance use status: uncomplicated Qualified Code(s): F14.20 - Cocaine dependence, uncomplicated (4) History of bipolar disorder Current Visit: No Status: Chronic (5) Hypertension Current Visit: No Status: Chronic Qualifiers: Hypertension type: essential hypertension Qualified Code(s): I10 - Essential (primary) hypertension (6) Nicotine dependence Current Visit: No Status: Chronic Qualifiers: Nicotine product type: cigarettes Substance use status: in withdrawal Qualified Code(s): F17.213 - Nicotine dependence, cigarettes, with withdrawal BHS Breath Alcohol Content Breath Alcohol Content: 0 Urine Drug Screen - Results Drug Screen Negative: No Urine Drug Screen Results: THC-Marijuana, ASHLEY-Cocaine
[2018-08-01] MEDS ORDERED: ACETAMINOPHEN 325 MG TABLET (FP) PO PRN (10:59)
[2018-08-01] MEDS ORDERED: LOPERAMIDE HCL 2 MG CAPSULE PO PRN (10:59)
[2018-08-01] MEDS ORDERED: chlordiazePOXIDE HCL 25 MG CAPSULE PO PRN (10:59)
[2018-08-01] MEDS ORDERED: guaiFENesin/D-METHORPHAN HB 10 ML UNIT-DOSE CUPS PO PRN (10:59)
[2018-08-01] MEDS ORDERED: MAG HYDROX/AL HYDROX/SIMETH 30 ML UNIT-DOSE CUP PO PRN (10:59)
[2018-08-01] MEDS ORDERED: P-EPHED 60MG/TRIPROLIDI 2.5MG TABLET PO PRN (10:59)
[2018-08-01] MEDS ORDERED: IBUPROFEN 400 MG TABLET (FP) PO PRN (10:59)
[2018-08-01] MEDS ORDERED: MENTHOL/PHENOL 1 EACH UD MM PRN (10:59)
[2018-08-01] MEDS ORDERED: MAGNESIUM CITRATE 300 ML BOTTLE PO PRN (10:59)
[2018-08-01] MEDS ORDERED: MAGNESIUM HYDROX 2400MG/30ML ORAL SUSPENSION 30 ML CUP PO PRN (10:59)
[2018-08-01] MEDS ORDERED: cloNIDine HCL 0.1 MG TABLET PO PRN (11:08)
--- NOTE | 2018-08-01 14:50 | CONSULT ---
[facility] Psychiatric Consult - Data Date of interview: 08/01/18 Admission source: [facility] Identifying data: Patient is a 52 year old single male, without children, unemployed, homeless, and is supported by public assistance. This is one of multiple admissions for patient. Patient admitted to for alcohol and cocaine dependence. Substance Abuse History: Smoking Cessation. Smoking history: Former smoker. Have you smoked in the past 12 months: Yes. Aproximately how many cigarettes per day: 8. Cigars Per Day: 0. Hx Chewing Tobacco Use: No. Initiated information on smoking cessation: Yes. 'Breaking Loose' booklet given: . - Substances Abused. Cocaine. Route: Inhalation. Frequency: 3-6 times per week. Amount used: $75. Age of first use: 17. Date of Last Use: 11/17. Alcohol-vodka/rum/beer. Route: Oral. Frequency: Daily. Amount used : 1 pt./3 (12 oz.). Age of first use: 17. Date of Last Use: 07/31/18. Marijuana. Route: Smoking. Frequency: 3-6 times per week. Amount used: $20. Age of first use: 17. Date of Last Use: 07/31/18 Medical History: hypertension, diabetes Psychiatric History: Patient's first psychiatric contact was at 18 which resulted in a diagnosis of bipolar disorder. Patient reports multiple psychiatric hospitalizations, most recently 1.5 years ago at the [facility] for depression. Claims he was prescribed lithium, remeron and seroquel. He was referred for follow up but did not go and stopped taking his medications. Most recent outpatient psychiatrist was in 2013 at the [facility] in [place]. Pt. with a history of nonadherence to outpatient department. Today, patient reports amotivation, poor sleep and feeling sad. Pt. denies h/o suicide attempt. Physical/Sexual Abuse/Trauma History: denies. Mental Status Exam - Mental Status Exam Alert and Oriented to: Time, Place, Person Cognitive Function: Good Patient Appearance: Well Groomed Mood: Sad, Euthymic Affect: Euthymic Patient Behavior: Appropriate, Cooperative Speech Pattern: Appropriate Voice Loudness: Normal Thought Process: Intact, Goal Oriented Thought Disorder: Not Present Hallucinations: Denies Suicidal Ideation: Denies Homicidal Ideation: Denies Insight/Judgement: Poor Sleep: Poorly Appetite: Fair Muscle strength/Tone: Normal Gait/Station: Normal Psychiatric Findings - Problem List ([place] 1, 2,3) (1) Alcohol dependence with uncomplicated withdrawal Current Visit: Yes Status: Acute (2) Cocaine dependence Current Visit: No Status: Chronic Qualifiers: Substance use status: uncomplicated Qualified Code(s): F14.20 - Cocaine dependence, uncomplicated (3) Substance induced mood disorder Current Visit: Yes Status: Acute (4) Substance-induced sleep disorder Current Visit: Yes Status: Acute (5) Cannabis dependence Current Visit: No Status: Chronic - Initial Treatment Plan Initial Treatment Plan: Psychoeducation provided. Detoxification in progress. Will order Seroquel 50mg qhs. Benefits and side effects discussed. Verbal consent given.
--- NOTE | 2018-08-01 16:04 | EKG ---
Test Reason : Blood Pressure : / mmHG Vent. Rate : 072 BPM Atrial Rate : 072 BPM P-R Int : 152 ms QRS Dur : 092 ms QT Int : 406 ms P-R-T Axes : 072 067 057 degrees QTc Int : 444 ms NORMAL SINUS RHYTHM NORMAL ECG WHEN COMPARED WITH ECG OF 18-MAR-2018 15:32, NO SIGNIFICANT CHANGE WAS FOUND Confirmed by Neo Medina MD ([id number]) on 08/01/2018 4:03:55 PM Referred By: Confirmed By:Neo Medina MD
[2018-08-01] MEDS ORDERED: INSULIN (NOVOLOG) ASPART 100 UNITS/ML 10ML VIAL ONE ×2 (16:52→22:25)
[2018-08-01] MEDS: INSULIN SLIDING SCALE (NOVOLOG) 1 VIAL SQ SCH ×2 (17:36→22:25)
[2018-08-01 18:43] LABS: URINE APPEARANCE SLCLOUDY; URINE BILIRUBIN NEGATIVE (<2.0 mg/dL); URINE COLOR DKYELLOW; URINE GLUCOSE (UA) 1+ (NEGATIVE); URINE KETONE NEGATIVE (NEGATIVE); URINE LEUK ESTERASE NEGATIVE (NEGATIVE); URINE NITRITE NEGATIVE (NEGATIVE); URINE PROTEIN NEGATIVE (NEGATIVE); URINE UROBILINOGEN NEGATIVE mg/dL (0.2-1.0)
[2018-08-01] MEDS ORDERED: MELATONIN 5 MG TABLETS PO PRN (22:00)
[2018-08-01] MEDS: THIAMINE HCL 100 MG TABLET (FP) PO SCH (22:10)
[2018-08-01] MEDS: QUEtiapine FUMARATE 50 MG TABLET PO SCH (22:10)
[2018-08-01] MEDS: chlordiazePOXIDE HCL 25 MG CAPSULE PO SCH (22:10)
[2018-08-02] MEDS: chlordiazePOXIDE HCL 25 MG CAPSULE PO SCH ×3 (06:29→17:38)
[2018-08-02] MEDS: INSULIN SLIDING SCALE (NOVOLOG) 1 VIAL SQ SCH ×4 (06:35→22:37)
[2018-08-02] MEDS ORDERED: INSULIN (NOVOLOG) ASPART 100 UNITS/ML 10ML VIAL ONE ×3 (06:37→22:36)
[2018-08-02 10:24] LABS: HEMOGLOBIN 13.8 GM/dL (11.7-16.9); MCH 30.4 pg (25.7-33.7); MCHC 33.7 g/dl (32.0-35.9); MEAN CELL VOLUME 90.4 fl (80-96); PLATELET COUNT 200 K/MM3 (134-434); RBC 4.54 M/mm3 (4.00-5.60); RDW 13.7 % (11.9-15.9); WHITE BLOOD COUNT 12.8 K/mm3 (4.0-10.0)
--- NOTE | 2018-08-02 10:35 | PN ---
S CIWA - CIWA Score Nausea/Vomitin-No Nausea/No Vomiting Muscle Tremors: 3 Anxiety: 3 Agitation: 3 Paroxysmal Sweats: 2 Orientation: 0-Oriented Tacttile Disturbances: 0-None Auditory Disturbances: 0-None Visual Disturbances: 0-None Headache: 1-Very Mild CIWA-Ar Total Score: 12 S Progress Note (SOAP) Subjective: tired sweats body aches interrupted sleep Objective: 08/02/18 10:35 Vital Signs Temperature 97.3 F L 08/02/18 09:07 Pulse Rate 66 08/02/18 09:07 Respiratory Rate 16 08/02/18 09:07 Blood Pressure 120/72 08/02/18 09:07 O2 Sat by Pulse Oximetry (%) Laboratory Tests 08/01/18 08/01/18 08/01/18 11:40 12:03 16:25 WBC RBC Hgb Hct MCV MCH MCHC RDW Plt Count MPV POC Glucometer 172 216 Urine Color Urine Appearance Urine pH Ur Specific [place] Urine Protein Urine Glucose (UA) Urine Ketones Urine Blood Urine Nitrite Urine Bilirubin Urine Urobilinogen Ur Leukocyte Esterase HIV 1&2 Antibody Screen Negative HIV P24 Antigen Negative 08/01/18 08/01/18 08/02/18 16:30 22:15 06:00 WBC 12.8 H RBC 4.54 Hgb 13.8 Hct 41.0 MCV 90.4 MCH 30.4 MCHC 33.7 RDW 13.7 Plt Count 200 MPV 10.0 D POC Glucometer 267 Urine Color Dkyellow Urine Appearance Slcloudy Urine pH 5.0 Ur Specific [place] 1.020 Urine Protein Negative Urine Glucose (UA) 1+ H Urine Ketones Negative Urine Blood Negative Urine Nitrite Negative Urine Bilirubin Negative Urine Urobilinogen Negative Ur Leukocyte Esterase Negative HIV 1&2 Antibody Screen HIV P24 Antigen 08/02/18 06:31 WBC RBC Hgb Hct MCV MCH MCHC RDW Plt Count MPV POC Glucometer 260 Urine Color Urine Appearance Urine pH Ur Specific [place] Urine Protein Urine Glucose (UA) Urine Ketones Urine Blood Urine Nitrite Urine Bilirubin Urine Urobilinogen Ur Leukocyte Esterase HIV 1&2 Antibody Screen HIV P24 Antigen aaox3 ambulating no acute distress Assessment: 08/02/18 10:35 withdrawal sx Plan: continue detox increase fluids
[2018-08-02] MEDS: PRENATAL VITAMINS W/ FOLIC ACID TABLET (FP) PO SCH (10:39)
[2018-08-02] MEDS: ENALAPRIL MALEATE 10 MG TABLET (FP) PO SCH (10:39)
[2018-08-02 11:30] LABS: ALBUMIN 4.1 g/dl (3.4-5.0); ALK PHOS 67 U/L (45-117); ANION GAP 11 MMOL/L (8-16); BILIRUBIN,TOTAL 1.3 mg/dL (0.2-1); BLOOD UREA NITROGEN 9 mg/dL (7-18); CALCIUM 9.1 mg/dL (8.5-10.1); CHLORIDE 100 mmol/L (98-107); CO2 27 mmol/L (21-32); GLUCOSE,RANDOM 189 mg/dL (74-106); POTASSIUM 4.4 mmol/L (3.5-5.1); SGOT/AST 11 U/L (15-37); SGPT/ALT 21 U/L (13-61); SODIUM 138 mmol/L (136-145); TOT PROT 7.2 g/dl (6.4-8.2)
[2018-08-02] MEDS: QUEtiapine FUMARATE 50 MG TABLET PO SCH (22:28)
[2018-08-02] MEDS: THIAMINE HCL 100 MG TABLET (FP) PO SCH (22:28)
[2018-08-02] MEDS: chlordiazePOXIDE 5 MG CAPSULE PO SCH (22:33)
[2018-08-03] MEDS: chlordiazePOXIDE 5 MG CAPSULE PO SCH ×3 (06:42→16:58)
[2018-08-03] MEDS ORDERED: INSULIN (NOVOLOG) ASPART 100 UNITS/ML 10ML VIAL ONE ×4 (07:50→22:40)
[2018-08-03] MEDS: INSULIN SLIDING SCALE (NOVOLOG) 1 VIAL SQ SCH ×4 (07:53→22:41)
[2018-08-03] MEDS: PRENATAL VITAMINS W/ FOLIC ACID TABLET (FP) PO SCH (10:11)
[2018-08-03] MEDS: ENALAPRIL MALEATE 10 MG TABLET (FP) PO SCH (10:12)
--- NOTE | 2018-08-03 11:12 | PN ---
S CIWA - CIWA Score Nausea/Vomitin-Mild Nausea/No Vomiting Muscle Tremors: 2 Anxiety: 2 Agitation: 2 Paroxysmal Sweats: 2 Orientation: 0-Oriented Tacttile Disturbances: 1-Very Mild Itch/Numbness Auditory Disturbances: 0-None Visual Disturbances: 0-None Headache: 1-Very Mild CIWA-Ar Total Score: 11 S Progress Note (SOAP) Subjective: c/o of fatigue, drowsiness, interrupted sleep Objective: 08/03/18 11:11 Vital Signs Temperature 97.7 F 08/03/18 09:50 Pulse Rate 63 08/03/18 09:50 Respiratory Rate 18 08/03/18 09:50 Blood Pressure 119/75 08/03/18 09:50 O2 Sat by Pulse Oximetry (%) Laboratory Last Values WBC 12.8 K/mm3 (4.0-10.0) H 08/02/18 06:00 RBC 4.54 M/mm3 (4.00-5.60) 08/02/18 06:00 Hgb 13.8 GM/dL (11.7-16.9) 08/02/18 06:00 Hct 41.0 % (35.4-49) 08/02/18 06:00 MCV 90.4 fl (80-96) 08/02/18 06:00 MCH 30.4 pg (25.7-33.7) 08/02/18 06:00 MCHC 33.7 g/dl (32.0-35.9) 08/02/18 06:00 RDW 13.7 % (11.9-15.9) 08/02/18 06:00 Plt Count 200 K/MM3 (134-434) 08/02/18 06:00 MPV 10.0 fl (7.5-11.1) D 08/02/18 06:00 Sodium 138 mmol/L (136-145) 08/02/18 06:00 Potassium 4.4 mmol/L (3.5-5.1) 08/02/18 06:00 Chloride 100 mmol/L (98-107) 08/02/18 06:00 Carbon Dioxide 27 mmol/L (21-32) 08/02/18 06:00 Anion Gap 11 MMOL/L (8-16) 08/02/18 06:00 BUN 9 mg/dL (7-18) 08/02/18 06:00 Creatinine 1.0 mg/dL (0.55-1.3) 08/02/18 06:00 Creat Clearance w eGFR > 60 (>60) 08/02/18 06:00 POC Glucometer 261 UNITS (80-120) 08/03/18 06:13 Random Glucose 189 mg/dL (74-106) H 08/02/18 06:00 Calcium 9.1 mg/dL (8.5-10.1) 08/02/18 06:00 Total Bilirubin 1.3 mg/dL (0.2-1) H 08/02/18 06:00 AST 11 U/L (15-37) L 08/02/18 06:00 ALT 21 U/L (13-61) 08/02/18 06:00 Alkaline Phosphatase 67 U/L (45-117) 08/02/18 06:00 Total Protein 7.2 g/dl (6.4-8.2) 08/02/18 06:00 Albumin 4.1 g/dl (3.4-5.0) 08/02/18 06:00 Urine Color Dkyellow 08/01/18 16:30 Urine Appearance Slcloudy 08/01/18 16:30 Urine pH 5.0 (5.0-8.0) 08/01/18 16:30 Ur Specific [place] 1.020 (1.001-1.035) 08/01/18 16:30 Urine Protein Negative (NEGATIVE) 08/01/18 16:30 Urine Glucose (UA) 1+ (NEGATIVE) H 08/01/18 16:30 Urine Ketones Negative (NEGATIVE) 08/01/18 16:30 Urine Blood Negative (NEGATIVE) 08/01/18 16:30 Urine Nitrite Negative (NEGATIVE) 08/01/18 16:30 Urine Bilirubin Negative (<2.0 mg/dL) 08/01/18 16:30 Urine Urobilinogen Negative mg/dL (0.2-1.0) 08/01/18 16:30 Ur Leukocyte Esterase Negative (NEGATIVE) 08/01/18 16:30 RPR Titer Nonreactive (NONREACTIVE) 08/02/18 06:00 HIV 1&2 Antibody Screen Negative 08/01/18 12:03 HIV P24 Antigen Negative 08/01/18 12:03 Aox3 no distress no adventitious breath sounds full ROM ambulating in the unit Assessment: 08/03/18 11:11 withdrawal sx Plan: increase fluids continue detox continue to monitor
[2018-08-03] MEDS: QUEtiapine FUMARATE 50 MG TABLET PO SCH (22:41)
[2018-08-03] MEDS: chlordiazePOXIDE HCL 10 MG CAPSULE PO SCH (22:41)
[2018-08-03] MEDS: THIAMINE HCL 100 MG TABLET (FP) PO SCH (22:43)
[2018-08-04] MEDS: chlordiazePOXIDE HCL 10 MG CAPSULE PO SCH ×2 (05:18→11:09)
[2018-08-04] MEDS: INSULIN SLIDING SCALE (NOVOLOG) 1 VIAL SQ SCH ×2 (07:05→12:30)
[2018-08-04] MEDS: ENALAPRIL MALEATE 10 MG TABLET (FP) PO SCH (11:08)
[2018-08-04] MEDS: PRENATAL VITAMINS W/ FOLIC ACID TABLET (FP) PO SCH (11:08)
[2018-08-04] MEDS ORDERED: INSULIN (NOVOLOG) ASPART 100 UNITS/ML 10ML VIAL ONE (12:36)
--- NOTE | 2018-08-04 13:07 | PN ---
[facility] Progress Note Note: PATIENT REPORTS HE FEELS TIRED BUT DENIES HEADACHE, SWEATING, N/V/D. Vital Signs Temperature 97.7 F 08/04/18 09:39 Pulse Rate 59 L 08/04/18 09:39 Respiratory Rate 18 08/04/18 09:39 Blood Pressure 112/73 08/04/18 09:39 O2 Sat by Pulse Oximetry (%) Laboratory Tests 08/01/18 08/01/18 08/01/18 11:40 12:03 16:25 WBC RBC Hgb Hct MCV MCH MCHC RDW Plt Count MPV Sodium Potassium Chloride Carbon Dioxide Anion Gap BUN Creatinine Creat Clearance w eGFR POC Glucometer 172 216 Random Glucose Calcium Total Bilirubin AST ALT Alkaline Phosphatase Total Protein Albumin Urine Color Urine Appearance Urine pH Ur Specific [place] Urine Protein Urine Glucose (UA) Urine Ketones Urine Blood Urine Nitrite Urine Bilirubin Urine Urobilinogen Ur Leukocyte Esterase RPR Titer HIV 1&2 Antibody Screen Negative HIV P24 Antigen Negative 08/01/18 08/01/18 08/02/18 16:30 22:15 06:00 WBC 12.8 H RBC 4.54 Hgb 13.8 Hct 41.0 MCV 90.4 MCH 30.4 MCHC 33.7 RDW 13.7 Plt Count 200 MPV 10.0 D Sodium Potassium Chloride Carbon Dioxide Anion Gap BUN Creatinine Creat Clearance w eGFR POC Glucometer 267 Random Glucose Calcium Total Bilirubin AST ALT Alkaline Phosphatase Total Protein Albumin Urine Color Dkyellow Urine Appearance Slcloudy Urine pH 5.0 Ur Specific [place] 1.020 Urine Protein Negative Urine Glucose (UA) 1+ H Urine Ketones Negative Urine Blood Negative Urine Nitrite Negative Urine Bilirubin Negative Urine Urobilinogen Negative Ur Leukocyte Esterase Negative RPR Titer HIV 1&2 Antibody Screen HIV P24 Antigen 08/02/18 08/02/18 08/02/18 06:00 06:00 06:31 WBC RBC Hgb Hct MCV MCH MCHC RDW Plt Count MPV Sodium 138 Potassium 4.4 Chloride 100 Carbon Dioxide 27 Anion Gap 11 BUN 9 Creatinine 1.0 Creat Clearance w eGFR > 60 POC Glucometer 260 Random Glucose 189 H Calcium 9.1 Total Bilirubin 1.3 H AST 11 L ALT 21 Alkaline Phosphatase 67 Total Protein 7.2 Albumin 4.1 Urine Color Urine Appearance Urine pH Ur Specific [place] Urine Protein Urine Glucose (UA) Urine Ketones Urine Blood Urine Nitrite Urine Bilirubin Urine Urobilinogen Ur Leukocyte Esterase RPR Titer Nonreactive HIV 1&2 Antibody Screen HIV P24 Antigen 08/02/18 08/02/18 08/02/18 12:05 16:30 22:34 WBC RBC Hgb Hct MCV MCH MCHC RDW Plt Count MPV Sodium Potassium Chloride Carbon Dioxide Anion Gap BUN Creatinine Creat Clearance w eGFR POC Glucometer 308 141 266 Random Glucose Calcium Total Bilirubin AST ALT Alkaline Phosphatase Total Protein Albumin Urine Color Urine Appearance Urine pH Ur Specific [place] Urine Protein Urine Glucose (UA) Urine Ketones Urine Blood Urine Nitrite Urine Bilirubin Urine Urobilinogen Ur Leukocyte Esterase RPR Titer HIV 1&2 Antibody Screen HIV P24 Antigen 08/03/18 08/03/18 08/03/18 06:13 11:54 16:33 WBC RBC Hgb Hct MCV MCH MCHC RDW Plt Count MPV Sodium Potassium Chloride Carbon Dioxide Anion Gap BUN Creatinine Creat Clearance w eGFR POC Glucometer 261 209 232 Random Glucose Calcium Total Bilirubin AST ALT Alkaline Phosphatase Total Protein Albumin Urine Color Urine Appearance Urine pH Ur Specific [place] Urine Protein Urine Glucose (UA) Urine Ketones Urine Blood Urine Nitrite Urine Bilirubin Urine Urobilinogen Ur Leukocyte Esterase RPR Titer HIV 1&2 Antibody Screen HIV P24 Antigen 08/03/18 08/04/18 08/04/18 22:34 05:20 11:48 WBC RBC Hgb Hct MCV MCH MCHC RDW Plt Count MPV Sodium Potassium Chloride Carbon Dioxide Anion Gap BUN Creatinine Creat Clearance w eGFR POC Glucometer 294 218 388 Random Glucose Calcium Total Bilirubin AST ALT Alkaline Phosphatase Total Protein Albumin Urine Color Urine Appearance Urine pH Ur Specific [place] Urine Protein Urine Glucose (UA) Urine Ketones Urine Blood Urine Nitrite Urine Bilirubin Urine Urobilinogen Ur Leukocyte Esterase RPR Titer HIV 1&2 Antibody Screen HIV P24 Antigen PE: ALERT AND ORIENTED SKIN WARM AND DRY AMB AD MARSHALL, FULL ROM, NO TREMORS A/P: WITHDRAWAL SYNDROME CONTINUE DETOX ENCOURAGE ORAL FLUIDS CONTINUE TO MONITOR CLINICALLY
[2018-08-04 14:09] VITALS: BP 126/77; PULSE 62; TEMP 97.5
== END 2018-08-04 14:25 | disposition other institution (70) | DRG 774 ==
LOC: YASAS 10:23 → Y6N 12:21
PROC: HZ2ZZZZ Detoxification Services for Substance Abuse Treatment (ICD-10-PCS; principal; 2018-08-01)
DX: F10.230 Alcohol dependence with withdrawal, uncomplicated (principal); F14.20 Cocaine dependence, uncomplicated; F12.20 Cannabis dependence, uncomplicated; F17.213 Nicotine dependence, cigarettes, with withdrawal; F19.24 Other psychoactive substance dependence with psychoactive substance-induced mood disorder; E11.65 Type 2 diabetes mellitus with hyperglycemia; K21.9 Gastro-esophageal reflux disease without esophagitis; I10 Essential (primary) hypertension; Z79.4 Long term (current) use of insulin
CPT/HCPCS: 36415; 80053; 81003; 82962; 85027; 86593; 87389; 93005; 93010

== ENCOUNTER 2018-08-04 14:36 | Inpatient (IN) | payer OTHER ==
[2018-08-04 14:54] VITALS: BMI 22.6
[2018-08-04] MEDS ORDERED: MENTHOL/PHENOL 1 EACH UD MM PRN (15:20)
[2018-08-04] MEDS ORDERED: LOPERAMIDE HCL 2 MG CAPSULE PO PRN (15:20)
[2018-08-04] MEDS ORDERED: guaiFENesin/D-METHORPHAN HB 10 ML UNIT-DOSE CUPS PO PRN (15:20)
[2018-08-04] MEDS ORDERED: hydrOXYzine PAMOATE 25 MG CAPSULE (FP) PO PRN (15:20)
[2018-08-04] MEDS ORDERED: MAGNESIUM HYDROX 2400MG/30ML ORAL SUSPENSION 30 ML CUP PO PRN (15:20)
[2018-08-04] MEDS ORDERED: P-EPHED 60MG/TRIPROLIDI 2.5MG TABLET PO PRN (15:20)
[2018-08-04] MEDS ORDERED: MAGNESIUM CITRATE 300 ML BOTTLE PO PRN (15:20)
[2018-08-04] MEDS ORDERED: MAG HYDROX/AL HYDROX/SIMETH 30 ML UNIT-DOSE CUP PO PRN (15:20)
[2018-08-04] MEDS: INSULIN SLIDING SCALE (NOVOLOG) 1 VIAL SQ SCH ×2 (16:40→21:36)
[2018-08-04] MEDS: MELATONIN 5 MG TABLETS PO PRN (21:35)
[2018-08-04] MEDS: THIAMINE HCL 100 MG TABLET (FP) PO SCH (21:36)
[2018-08-04] MEDS: INSULIN (LEVEMIR) 100 UNITS/ML UNITS SQ SCH (21:36)
[2018-08-05] MEDS: INSULIN SLIDING SCALE (NOVOLOG) 1 VIAL SQ SCH ×4 (06:18→22:18)
[2018-08-05] MEDS: PRENATAL VITAMINS W/ FOLIC ACID TABLET (FP) PO SCH (10:35)
[2018-08-05] MEDS: ENALAPRIL MALEATE 10 MG TABLET (FP) PO SCH (10:35)
[2018-08-05] MEDS ORDERED: INSULIN (NOVOLOG) ASPART 100 UNITS/ML 10ML VIAL ONE ×3 (11:42→20:37)
[2018-08-05] MEDS: THIAMINE HCL 100 MG TABLET (FP) PO SCH (22:16)
[2018-08-05] MEDS: INSULIN (LEVEMIR) 100 UNITS/ML UNITS SQ SCH (22:17)
[2018-08-05] MEDS: MELATONIN 5 MG TABLETS PO PRN (22:17)
[2018-08-06] MEDS: INSULIN SLIDING SCALE (NOVOLOG) 1 VIAL SQ SCH ×4 (06:35→20:59)
[2018-08-06] MEDS: ENALAPRIL MALEATE 10 MG TABLET (FP) PO SCH (10:07)
[2018-08-06] MEDS: PRENATAL VITAMINS W/ FOLIC ACID TABLET (FP) PO SCH (10:07)
[2018-08-06] MEDS ORDERED: INSULIN (NOVOLOG) ASPART 100 UNITS/ML 10ML VIAL ONE ×3 (11:38→20:56)
[2018-08-06] MEDS: INSULIN (LEVEMIR) 100 UNITS/ML UNITS SQ SCH (20:59)
[2018-08-06] MEDS: THIAMINE HCL 100 MG TABLET (FP) PO SCH (20:59)
[2018-08-06] MEDS: QUEtiapine FUMARATE 100 MG TABLET (FP) PO SCH (20:59)
--- NOTE | 2018-08-07 06:19 | HP ---
Psychiatrist Admission - Data Date of interview: 08/07/18 Admission source: Self-referred Identifying data: This is the second [facility] admission for this 52 years old single male, unemployed on public assistance, homeless Medical History: Significant for diabetes mellitus, hypertension, arthritis both knees, chronic lumbar pain, GERD, herniated discs (L4-L5) and history of treatment for PPD+.Smokes nicotine 8 cigarettes daily Psychiatric History: Patient provides conflicting information to different providers in this facility. During an admission in February 2018, he reported being diagnosed with Bipolar Disorder in 1995 with 2 previous psychiatric admissions both to [facility]/[place]. Recently on 08/01/18 while in detox, he told IZABELLA Moe that he was diagnosed with Bipolar Disorder at age 18 and has hd multiple psychiatric hospitalizations. Reports that his most recent admission was in 1.5 years ago to [facility] for depression. Claims that he was discharged on [place] and Remeron and referred for follow up. Claims that he did not go to aftercare and stopped taking medications. He saw IZABELLA Moe on 08/01/18 while in detox and was prescribed Seroquel 50 mg po HS. At present, reports feeling depressed and sleeping poorly. Denies experiencing psychotic or manic symptoms as well as S/H ideations. Requests Seroquel dosage be increased to 100 mg Physical/Sexual Abuse/Trauma History: Denies history of emotional, physical or sexual abuse as well as DV relationship. No service Additional Comment: Reports history of multiple previous arrests including 2 felony convictions. Denies being on parole/probation at present Vital Signs: Vital Signs - 24 hr 08/06/18 08/06/18 07:05 09:44 Temperature 98.1 F Pulse Rate 82 80 Respiratory 18 18 Rate Blood Pressure 118/65 118/78 Allergies/Adverse Reactions: Allergies Allergy/AdvReac Type Severity Reaction Status Date / Time No Known Allergies Allergy Verified 08/04/18 14:40 Date of last physical exam: 08/01/18 Concur with the findings of this exam: Yes - Substance Abuse/Tx History Hx Alcohol Use: Yes Hx Substance Use: Yes Substance Use Type: Alcohol (Started drinking alcohol at age 17, consumes one pint of rum or vodka & 3x 12ox of beer daily. Last drank on 07/31/18), Cocaine ( Started using cocaine at age 17, consumes $75 worth 3-6 times weekly. Last used on 07/31/18), Marijuana (Started smoking marijuana at age 17, consumes $20 3-6 times weekly. Last smoked on 07/31/18) Hx Substance Use Treatment: Yes (2 previous inpt detox & one inpt rehab admissions @[facility]) Mental Status Exam - Mental Status Exam Alert and Oriented to: Time, Place, Person Cognitive Function: Fair Patient Appearance: Well Groomed Mood: Depressed Affect: Constricted Patient Behavior: Cooperative Speech Pattern: Clear Voice Loudness: Normal Thought Process: Intact, Goal Oriented Thought Disorder: Not Present Hallucinations: Denies Homicidal Ideation: Denies Insight/Judgement: Fair Sleep: Poorly Appetite: Fair Muscle strength/Tone: Normal Gait/Station: Normal Psychiatric Findings - Problem List ([place] 1, 2,3) (1) Alcohol dependence Current Visit: No Status: Acute (2) Cocaine dependence Current Visit: No Status: Acute Qualifiers: Substance use status: uncomplicated Qualified Code(s): F14.20 - Cocaine dependence, uncomplicated (3) Cannabis dependence Current Visit: No Status: Acute (4) Nicotine dependence Current Visit: No Status: Chronic Qualifiers: Nicotine product type: cigarettes Substance use status: in withdrawal Qualified Code(s): F17.213 - Nicotine dependence, cigarettes, with withdrawal (5) Bipolar disorder Current Visit: Yes Status: Chronic (6) Substance induced mood disorder Current Visit: No Status: Acute (7) Substance-induced sleep disorder Current Visit: No Status: Acute (8) Diabetes mellitus type II, uncontrolled Current Visit: No Status: Chronic (9) GERD (gastroesophageal reflux disease) Current Visit: No Status: Chronic Qualifiers: Esophagitis presence: without esophagitis Qualified Code(s): K21.9 - Gastro -esophageal reflux disease without esophagitis (10) Hypertension Current Visit: No Status: Chronic Qualifiers: Hypertension type: essential hypertension Qualified Code(s): I10 - Essential (primary) hypertension (11) Positive PPD, treated Current Visit: No Status: Resolved - Initial Treatment Plan Initial Treatment Plan: 1) Start Seroquel 100 mg po HS. 2) Monitor progress
[2018-08-07] MEDS: INSULIN SLIDING SCALE (NOVOLOG) 1 VIAL SQ SCH ×4 (06:30→21:19)
[2018-08-07] MEDS: PRENATAL VITAMINS W/ FOLIC ACID TABLET (FP) PO SCH (10:24)
[2018-08-07] MEDS: ENALAPRIL MALEATE 10 MG TABLET (FP) PO SCH (10:25)
--- NOTE | 2018-08-07 12:38 | PN ---
[facility] Progress Note Note: A&O x3. Laboratory Results - last 24 hr 08/06/18 08/06/18 08/07/18 16:43 20:53 06:30 POC Glucometer 272 277 95 08/07/18 08/07/18 11:56 16:40 POC Glucometer 286 226 Reviewed blood glucose results w/ patient. Discussed nutritional management of diabetes in support of medication management. Patient states will cut down on sugars. Encourage increased water intake. F/u as needed.
[2018-08-07] MEDS: COLLOIDAL OATMEAL 1 EACH PACKET TP SCH (13:54)
[2018-08-07] MEDS: INSULIN (LEVEMIR) 100 UNITS/ML UNITS SQ SCH (21:18)
[2018-08-07] MEDS: MELATONIN 5 MG TABLETS PO PRN (21:19)
[2018-08-07] MEDS: THIAMINE HCL 100 MG TABLET (FP) PO SCH (21:19)
[2018-08-07] MEDS: QUEtiapine FUMARATE 100 MG TABLET (FP) PO SCH (21:19)
[2018-08-07] MEDS ORDERED: INSULIN (NOVOLOG) ASPART 100 UNITS/ML 10ML VIAL ONE (22:23)
[2018-08-08] MEDS: INSULIN SLIDING SCALE (NOVOLOG) 1 VIAL SQ SCH ×4 (06:46→21:27)
[2018-08-08] MEDS: ENALAPRIL MALEATE 10 MG TABLET (FP) PO SCH (10:28)
[2018-08-08] MEDS: IBUPROFEN 400 MG TABLET (FP) PO PRN (10:28)
[2018-08-08] MEDS: PRENATAL VITAMINS W/ FOLIC ACID TABLET (FP) PO SCH (10:28)
[2018-08-08] MEDS ORDERED: INSULIN (NOVOLOG) ASPART 100 UNITS/ML 10ML VIAL ONE (11:44)
--- NOTE | 2018-08-08 13:27 | PN ---
S Progress Note Note: NOTIFIED BY RN PATIENTS BLOOD SUGAR 568 AT 11AM. COVERED WITH 10 UNITS OF INSULIN. PATIENT EVALUATED AT BEDSIDE. ALERT AND ORIENTED X 3. STATES HE USED TOO MUCH SUGAR ON HIS PANCAKES THIS MORNING. PATIENT DENIES LIGHTHEADEDNESS, DIZZINESS, SWEATING, N/V/D. Vital Signs Temperature 98 F 08/08/18 07:05 Pulse Rate 80 08/08/18 07:05 Respiratory Rate 18 08/08/18 07:05 Blood Pressure 93/62 08/08/18 07:05 O2 Sat by Pulse Oximetry (%) PE: SKIN WARM AND DRY ALERT AND ORIENTED X 3 EXT FULL ROM AMB AD MARSHALL A/P: ELEVATED BLOOD SUGAR ENCOURAGE ORAL FLUIDS DIET MODIFICATIONS REVIEWED CONTINUE LEVEMIR AND SLIDING SCALE ORDERED REPEAT BS AFTER INSULIN 190 CONTINUE TO MONITOR CLINICALLY
[2018-08-08] MEDS: COLLOIDAL OATMEAL 1 EACH PACKET TP SCH (13:56)
[2018-08-08] MEDS: MELATONIN 5 MG TABLETS PO PRN (21:26)
[2018-08-08] MEDS: QUEtiapine FUMARATE 100 MG TABLET (FP) PO SCH (21:26)
[2018-08-08] MEDS: THIAMINE HCL 100 MG TABLET (FP) PO SCH (21:26)
[2018-08-08] MEDS: INSULIN (LEVEMIR) 100 UNITS/ML UNITS SQ SCH (21:27)
[2018-08-09] MEDS: INSULIN SLIDING SCALE (NOVOLOG) 1 VIAL SQ SCH ×4 (06:46→21:12)
[2018-08-09] MEDS: PRENATAL VITAMINS W/ FOLIC ACID TABLET (FP) PO SCH (10:39)
[2018-08-09] MEDS: ENALAPRIL MALEATE 10 MG TABLET (FP) PO SCH (10:39)
[2018-08-09] MEDS: IBUPROFEN 400 MG TABLET (FP) PO PRN (11:48)
[2018-08-09] MEDS ORDERED: COLLOIDAL OATMEAL 1 EACH PACKET TP PRN (15:31)
[2018-08-09] MEDS: COLLOIDAL OATMEAL 1 EACH PACKET TP SCH (16:01)
[2018-08-09] MEDS ORDERED: INSULIN (NOVOLOG) ASPART 100 UNITS/ML 10ML VIAL ONE ×2 (17:05→21:10)
[2018-08-09] MEDS: INSULIN (LEVEMIR) 100 UNITS/ML UNITS SQ SCH (21:11)
[2018-08-09] MEDS: THIAMINE HCL 100 MG TABLET (FP) PO SCH (21:12)
[2018-08-09] MEDS: QUEtiapine FUMARATE 100 MG TABLET (FP) PO SCH (21:12)
[2018-08-10] MEDS: INSULIN SLIDING SCALE (NOVOLOG) 1 VIAL SQ SCH ×4 (06:53→21:00)
[2018-08-10] MEDS: ENALAPRIL MALEATE 10 MG TABLET (FP) PO SCH (09:51)
[2018-08-10] MEDS: PRENATAL VITAMINS W/ FOLIC ACID TABLET (FP) PO SCH (09:51)
[2018-08-10] MEDS ORDERED: INSULIN (NOVOLOG) ASPART 100 UNITS/ML 10ML VIAL ONE (11:34)
[2018-08-10] MEDS: QUEtiapine FUMARATE 100 MG TABLET (FP) PO SCH (21:02)
[2018-08-10] MEDS: THIAMINE HCL 100 MG TABLET (FP) PO SCH (21:02)
[2018-08-10] MEDS: INSULIN (LEVEMIR) 100 UNITS/ML UNITS SQ SCH (21:03)
[2018-08-11] MEDS: INSULIN SLIDING SCALE (NOVOLOG) 1 VIAL SQ SCH ×4 (06:44→21:00)
[2018-08-11] MEDS: IBUPROFEN 400 MG TABLET (FP) PO PRN (10:13)
[2018-08-11] MEDS: ENALAPRIL MALEATE 10 MG TABLET (FP) PO SCH (10:13)
[2018-08-11] MEDS: PRENATAL VITAMINS W/ FOLIC ACID TABLET (FP) PO SCH (10:13)
[2018-08-11] MEDS ORDERED: INSULIN (NOVOLOG) ASPART 100 UNITS/ML 10ML VIAL ONE ×3 (11:44→20:58)
[2018-08-11] MEDS: INSULIN (LEVEMIR) 100 UNITS/ML UNITS SQ SCH (21:00)
[2018-08-11] MEDS: THIAMINE HCL 100 MG TABLET (FP) PO SCH (21:01)
[2018-08-11] MEDS: QUEtiapine FUMARATE 100 MG TABLET (FP) PO SCH (21:01)
[2018-08-12] MEDS: INSULIN SLIDING SCALE (NOVOLOG) 1 VIAL SQ SCH ×4 (06:41→21:11)
[2018-08-12] MEDS: PRENATAL VITAMINS W/ FOLIC ACID TABLET (FP) PO SCH (10:00)
[2018-08-12] MEDS: ENALAPRIL MALEATE 10 MG TABLET (FP) PO SCH (10:00)
[2018-08-12] MEDS: THIAMINE HCL 100 MG TABLET (FP) PO SCH (21:10)
[2018-08-12] MEDS: QUEtiapine FUMARATE 100 MG TABLET (FP) PO SCH (21:10)
[2018-08-12] MEDS: INSULIN (LEVEMIR) 100 UNITS/ML UNITS SQ SCH (21:10)
[2018-08-12] MEDS: MELATONIN 5 MG TABLETS PO PRN (21:10)
[2018-08-13] MEDS: IBUPROFEN 400 MG TABLET (FP) PO PRN (06:33)
[2018-08-13] MEDS: INSULIN SLIDING SCALE (NOVOLOG) 1 VIAL SQ SCH ×4 (06:34→22:50)
[2018-08-13] MEDS: PRENATAL VITAMINS W/ FOLIC ACID TABLET (FP) PO SCH (10:00)
[2018-08-13] MEDS: ENALAPRIL MALEATE 10 MG TABLET (FP) PO SCH (10:00)
[2018-08-13] MEDS: ACETAMINOPHEN 325 MG TABLET (FP) PO PRN (10:01)
[2018-08-13] MEDS ORDERED: INSULIN (NOVOLOG) ASPART 100 UNITS/ML 10ML VIAL ONE ×2 (16:51→23:10)
[2018-08-13] MEDS: QUEtiapine FUMARATE 100 MG TABLET (FP) PO SCH (22:48)
[2018-08-13] MEDS: INSULIN (LEVEMIR) 100 UNITS/ML UNITS SQ SCH (22:48)
[2018-08-13] MEDS: THIAMINE HCL 100 MG TABLET (FP) PO SCH (22:48)
[2018-08-14] MEDS: INSULIN SLIDING SCALE (NOVOLOG) 1 VIAL SQ SCH ×4 (06:41→22:09)
[2018-08-14] MEDS: PRENATAL VITAMINS W/ FOLIC ACID TABLET (FP) PO SCH (10:33)
[2018-08-14] MEDS: ENALAPRIL MALEATE 10 MG TABLET (FP) PO SCH (10:33)
[2018-08-14] MEDS ORDERED: INSULIN (NOVOLOG) ASPART 100 UNITS/ML 10ML VIAL ONE ×3 (11:49→20:40)
[2018-08-14] MEDS: INSULIN (LEVEMIR) 100 UNITS/ML UNITS SQ SCH (22:09)
[2018-08-14] MEDS: THIAMINE HCL 100 MG TABLET (FP) PO SCH (22:09)
[2018-08-14] MEDS: QUEtiapine FUMARATE 100 MG TABLET (FP) PO SCH (22:09)
[2018-08-15] MEDS: INSULIN SLIDING SCALE (NOVOLOG) 1 VIAL SQ SCH ×4 (07:06→21:14)
[2018-08-15] MEDS: ENALAPRIL MALEATE 10 MG TABLET (FP) PO SCH (10:39)
[2018-08-15] MEDS: PRENATAL VITAMINS W/ FOLIC ACID TABLET (FP) PO SCH (10:39)
[2018-08-15] MEDS: IBUPROFEN 400 MG TABLET (FP) PO PRN (10:40)
[2018-08-15] MEDS ORDERED: INSULIN (NOVOLOG) ASPART 100 UNITS/ML 10ML VIAL ONE ×2 (12:01→16:49)
[2018-08-15] MEDS: ACETAMINOPHEN 325 MG TABLET (FP) PO PRN (14:37)
[2018-08-15] MEDS: THIAMINE HCL 100 MG TABLET (FP) PO SCH (21:13)
[2018-08-15] MEDS: MELATONIN 5 MG TABLETS PO PRN (21:13)
[2018-08-15] MEDS: QUEtiapine FUMARATE 100 MG TABLET (FP) PO SCH (21:13)
[2018-08-15] MEDS: INSULIN (LEVEMIR) 100 UNITS/ML UNITS SQ SCH (21:14)
[2018-08-16] MEDS: ACETAMINOPHEN 325 MG TABLET (FP) PO PRN (06:51)
[2018-08-16] MEDS: INSULIN SLIDING SCALE (NOVOLOG) 1 VIAL SQ SCH ×4 (07:10→21:06)
[2018-08-16] MEDS: PRENATAL VITAMINS W/ FOLIC ACID TABLET (FP) PO SCH (10:34)
[2018-08-16] MEDS: ENALAPRIL MALEATE 10 MG TABLET (FP) PO SCH (10:34)
[2018-08-16] MEDS: IBUPROFEN 400 MG TABLET (FP) PO PRN (10:34)
[2018-08-16] MEDS ORDERED: INSULIN (NOVOLOG) ASPART 100 UNITS/ML 10ML VIAL ONE ×2 (17:22→22:02)
[2018-08-16] MEDS: INSULIN (LEVEMIR) 100 UNITS/ML UNITS SQ SCH (21:04)
[2018-08-16] MEDS: THIAMINE HCL 100 MG TABLET (FP) PO SCH (21:06)
[2018-08-16] MEDS: MELATONIN 5 MG TABLETS PO PRN (21:06)
[2018-08-16] MEDS: QUEtiapine FUMARATE 100 MG TABLET (FP) PO SCH (21:06)
[2018-08-17] MEDS: INSULIN SLIDING SCALE (NOVOLOG) 1 VIAL SQ SCH ×4 (06:39→21:11)
--- NOTE | 2018-08-17 09:31 | PN ---
Psychiatric Progress Note Vital Signs: Vital Signs Period Temp Pulse Resp BP Sys/Magana Pulse Ox Last 24 Hr 97.8 F 76-84 -18 107-131/68-87 Date of Session: 08/17/18 Chief Complaint:: Discharge Note HPI: Patient addressing Alcohol, Cocaine and Cannabis Dependence comorbid with Nicotine Dependence, Bipolar Disorder, Substance-Induced Mood Disorder and Substance-Induced Sleep Disorder ROS: Type 2 DM, HTN, GERD, PPD+treated were medically managed Current Medications: Active Medications Generic Name Dose Route Start Last Admin Trade Name Freq PRN Reason Stop Dose Admin Acetaminophen 650 mg 08/04/18 15:20 08/16/18 06:51 Tylenol - PO 650 mg Q4H PRN Administration FEVER Al Hydroxide/Mg Hydroxide 30 ml 08/04/18 15:20 Mylanta Oral Suspension - PO Q6H PRN DYSPEPSIA Colloidal Oatmeal 1 each 08/09/18 15:31 Aveeno Bath - TP ASDIR PRN HYGEINE Enalapril Maleate 10 mg 08/05/18 10:00 08/16/18 10:34 Vasotec - PO 10 mg DAILY JESSIKA Administration Eucalyptus/Menthol/Phenol/Sorbitol 1 each 08/04/18 15:20 Cepastat Lozenge - MM Q4H PRN SORE THROAT Guaifenesin 10 ml 08/04/18 15:20 Robitussin Dm - PO Q6H PRN COUGH Hydroxyzine Pamoate 25 mg 08/04/18 15:20 Vistaril - PO Q4H PRN AGITATION Ibuprofen 400 mg 08/04/18 15:20 08/16/18 10:34 Motrin - PO 400 mg Q6H PRN Administration Pain Level 4-6 Insulin Aspart 1 vial 08/04/18 16:30 08/17/18 06:39 Novolog Vial Sliding Scale - SQ Not Given ACHS [facility] Protocol Insulin Detemir 20 units 08/04/18 22:00 08/16/18 21:04 Levemir Vial SQ 20 units HS JESSIKA Administration Loperamide HCl 4 mg 08/04/18 15:20 Imodium - PO Q6H PRN DIARRHEA Magnesium Citrate 300 ml 08/04/18 15:20 Citroma - PO Q48H PRN CONSTIPATION Magnesium Hydroxide 30 ml 08/04/18 15:20 Milk Of Magnesia - PO DAILY PRN CONSTIPATION Melatonin 5 mg 08/04/18 22:00 08/16/18 21:06 Melatonin PO 5 mg HS PRN Administration INSOMNIA Multivit/Folic Acid/Iron 1 tab 08/05/18 10:00 08/16/18 10:34 Vitamins (Sjr) - PO 1 tab DAILY JESSIKA Administration Pseudoephedrine/Triprolidine 1 combo 08/04/18 15:20 Actifed - PO TID PRN NASAL CONGESTION Quetiapine Fumarate 100 mg 08/06/18 22:00 08/16/18 21:06 Seroquel - PO 100 mg HS JESSIKA Administration Thiamine HCl 100 mg 08/04/18 22:00 08/16/18 21:06 Vitamin B1 - PO 100 mg HS JESSIKA Administration Current Side Effect: No Lab tests ordered: Yes Lab tests reviewed: Yes Provider note:: Patient will complete this program on 08/18/18. He has met his treatment goals and will continue to address his issues in penitentiary residential treatment at [facility]. Told narrative writer that from his participation in this program, he has learned to be more humble and stay away from people, places and things. He responded well to Seroquel 100 mg po HS. Script for 30 days supply of medication will be elecronically transmitted to [facility] at [address] [place] [address]. He is stable for discharge on 08/18/18 Total face to face time:: 35 Mental Status Exam - Mental Status Exam Alert and Oriented to: Time, Place, Person Cognitive Function: Fair Patient Appearance: Well Groomed Mood: Hopeful, Euthymic Affect: Appropriate Patient Behavior: Cooperative Speech Pattern: Clear Voice Loudness: Normal Thought Process: Intact, Goal Oriented Thought Disorder: Not Present Hallucinations: Denies Suicidal Ideation: Denies Homicidal Ideation: Denies Insight/Judgement: Fair Sleep: Fair Appetite: Good Muscle strength/Tone: Normal Gait/Station: Normal Psychiatric Treatment Plan - Problem List (1) Alcohol dependence Current Visit: No (2) Cocaine dependence Current Visit: No Qualifiers: Substance use status: uncomplicated Qualified Code(s): F14.20 - Cocaine dependence, uncomplicated (3) Cannabis dependence Current Visit: No (4) Nicotine dependence Current Visit: No Qualifiers: Nicotine product type: cigarettes Substance use status: in withdrawal Qualified Code(s): F17.213 - Nicotine dependence, cigarettes, with withdrawal (5) Bipolar disorder Current Visit: Yes (6) Substance induced mood disorder Current Visit: No (7) Substance-induced sleep disorder Current Visit: No (8) Diabetes mellitus type II, uncontrolled Current Visit: No (9) GERD (gastroesophageal reflux disease) Current Visit: No Qualifiers: Esophagitis presence: without esophagitis Qualified Code(s): K21.9 - Gastro -esophageal reflux disease without esophagitis (10) Hypertension Current Visit: No Qualifiers: Hypertension type: essential hypertension Qualified Code(s): I10 - Essential (primary) hypertension (11) Positive PPD, treated Current Visit: No Initial treatment plan: Patient will be discharged tomorrow and referred to [facility] for penitentiary residential treatment
[2018-08-17] MEDS: PRENATAL VITAMINS W/ FOLIC ACID TABLET (FP) PO SCH (10:39)
[2018-08-17] MEDS: ENALAPRIL MALEATE 10 MG TABLET (FP) PO SCH (10:39)
[2018-08-17] MEDS: IBUPROFEN 400 MG TABLET (FP) PO PRN (10:40)
--- NOTE | 2018-08-17 15:28 | PN ---
[facility] Progress Note Note: PT SCHEDULED FOR DISCHARGE IN A.M.COURTESY RX FOR LANTUS SENT TO [facility] FOR PICKUP. PT REPORTS HE HAS NO PRIMARY CARE SINCE HE IS DEALING WITH DRUGS. PT'S ADMISSION NOTS REVEALED NONCOMPLIANCE WITH HIS MEDS AND PT CONFIRMED SAME. PT AND COUNSELOR ARE WORKING ON REFERRAL TO A [facility] . PT INSTRUCTED TO FOLLOW UP WITH MEDICAL MANAGEMENT WELL. Vital Signs - 24 hr 08/17/18 08/17/18 08/17/18 00:30 03:30 06:53 Temperature 97.8 F Pulse Rate 84 Respiratory 18 18 18 Rate Blood Pressure 107/68 Laboratory Tests 08/04/18 08/05/18 08/05/18 20:43 06:18 11:39 POC Glucometer 319 157 282 08/05/18 08/05/18 08/06/18 16:52 20:33 06:35 POC Glucometer 220 240 130 08/06/18 08/06/18 08/06/18 11:37 16:43 20:53 POC Glucometer 207 272 277 08/07/18 08/07/18 08/07/18 06:30 11:56 16:40 POC Glucometer 95 286 226 08/07/18 08/08/18 08/08/18 21:15 06:46 11:42 POC Glucometer 266 93 568 08/08/18 08/08/18 08/08/18 13:28 16:40 21:24 POC Glucometer 190 237 310 08/09/18 08/09/18 08/09/18 06:45 11:47 16:50 POC Glucometer 148 174 256 08/09/18 08/10/18 08/10/18 21:08 06:53 11:32 POC Glucometer 245 174 234 08/10/18 08/10/18 08/11/18 16:46 21:00 06:43 POC Glucometer 185 365 170 08/11/18 08/11/18 08/11/18 11:46 16:37 20:53 POC Glucometer 322 261 371 08/12/18 08/12/18 08/12/18 06:40 11:48 17:10 POC Glucometer 170 187 337 08/12/18 08/13/18 08/13/18 21:08 06:32 11:58 POC Glucometer 276 133 295 08/13/18 08/13/18 08/14/18 16:48 22:47 06:40 POC Glucometer 303 346 157 08/14/18 08/14/18 08/14/18 11:28 16:35 20:38 POC Glucometer 248 339 280 08/15/18 08/15/18 08/15/18 07:05 11:57 16:48 POC Glucometer 152 426 245 08/15/18 08/16/18 08/16/18 21:11 06:51 12:08 POC Glucometer 284 104 322 08/16/18 08/16/18 08/17/18 17:11 20:54 06:38 POC Glucometer 210 227 149 NAD PLAN;FOLLOW UP WITH AFTERCARE FOLLOW UP WITH MEDICAL MANAGEMENT OF COMORBID CONDITION.
[2018-08-17] MEDS: THIAMINE HCL 100 MG TABLET (FP) PO SCH (21:10)
[2018-08-17] MEDS: INSULIN (LEVEMIR) 100 UNITS/ML UNITS SQ SCH (21:10)
[2018-08-17] MEDS: MELATONIN 5 MG TABLETS PO PRN (21:10)
[2018-08-17] MEDS: QUEtiapine FUMARATE 100 MG TABLET (FP) PO SCH (21:10)
[2018-08-18 07:05] VITALS: TEMP 97.7
[2018-08-18] MEDS: INSULIN SLIDING SCALE (NOVOLOG) 1 VIAL SQ SCH (07:07)
[2018-08-18 09:03] VITALS: BP 102/75; PULSE 81
[2018-08-18] MEDS: IBUPROFEN 400 MG TABLET (FP) PO PRN (09:50)
[2018-08-18] MEDS: ENALAPRIL MALEATE 10 MG TABLET (FP) PO SCH (09:50)
[2018-08-18] MEDS: PRENATAL VITAMINS W/ FOLIC ACID TABLET (FP) PO SCH (09:50)
== END 2018-08-18 09:55 | disposition home or self-care (01) | DRG 772 ==
LOC: YASAS 14:36 → Y3W 14:37
PROVIDERS: ADMIT Psychiatry & Neurology Psychiatry; ATTEND Psychiatry & Neurology Psychiatry
PROC: HZ42ZZZ Group Counseling for Substance Abuse Treatment, Cognitive-Behavioral (ICD-10-PCS; principal; 2018-08-04)
DX: F10.20 Alcohol dependence, uncomplicated (principal); F14.20 Cocaine dependence, uncomplicated; F12.20 Cannabis dependence, uncomplicated; F17.213 Nicotine dependence, cigarettes, with withdrawal; F19.24 Other psychoactive substance dependence with psychoactive substance-induced mood disorder; F19.282 Other psychoactive substance dependence with psychoactive substance-induced sleep disorder; F31.9 Bipolar disorder, unspecified; I10 Essential (primary) hypertension; E11.65 Type 2 diabetes mellitus with hyperglycemia; K21.9 Gastro-esophageal reflux disease without esophagitis; R76.11 Nonspecific reaction to tuberculin skin test without active tuberculosis; M13.862 Other specified arthritis, left knee; M13.861 Other specified arthritis, right knee; M51.26 Other intervertebral disc displacement, lumbar region
CPT/HCPCS: 82962